=== PATIENT | female | born 1965 | race Caucasian/White ===

== ENCOUNTER 2019-12-24 17:18 | Outpatient (CLI) | payer OTHER, SELFPAY ==
--- NOTE | ~2019-12-24 | MR_ITS ---
EXAMINATION: MR brain IAC wo/w con DATE: 12/24/2019 18:49 INDICATION: Left-sided hearing loss. Diplopia. Posterior headache. Dizziness and giddiness. TECHNIQUE: Magnetic resonance imaging (MRI) of the brain, brainstem, and internal auditory canals was performed without and with 11 mL MultiHance intravenous contrast. Sequences included sagittal and ax ial T1-weighted FSE, axial diffusion-weighted FS EPI, axial T2*-weighted GRE, axial T2-weighted FLAIR Propeller, axial T2-weighted Propeller, small pkngy-lt-uwou coronal FIESTA, small vwvec-ub-czad lukas nal T1-weighted FSE, and small zssbw-ew-yucs axial T1-weighted SPGR. Postcontrast sequences included axial T1-weighted FSE, small tltgh-dq-jaxf coronal T1-weighted FSE, and small bmgnx-ac-uldr axial T1- weighted SPGR. Apparent diffusion coefficient (ADC) maps were created. COMPARISON: Brain MRI 09/01/2007 FINDINGS: There are scattered areas of nonspecific increased T2-weighted signal intensity in the cere bral white matter. There is no intracranial hemorrhage, acute infarction, or abnormal intracranial ma ss lesion. The ventricles are normal in size. The paranasal sinuses are clear. The orbits are normal. The internal auditory canals and inner ears are normal. There is a small right mastoid effusion. IMPRESSION: 1. Worsened mild nonspecific cerebral white matter disease, which likely represents chronic small ves ryland ischemic disease. Reviewed, dictated and finalized at location A. IMPRESSION: 1. Worsened mild nonspecific cerebral white matter disease, which likely repres ents chronic small vessel ischemic disease.
[2019-12-24 17:56] LABS: Estimated Glomerular Filt Rate > 60
== END 2019-12-24 17:19 | disposition home or self-care (01) ==
LOC: ANHIMG 17:22
PROVIDERS: PCP Internal Medicine; Visit Provider Internal Medicine
DX: R42 Dizziness and giddiness (principal); R93.0 Abnormal findings on diagnostic imaging of skull and head, not elsewhere classified
CPT/HCPCS: 36415; 70553; A9577

== ENCOUNTER 2020-08-09 12:52 | Outpatient (CLI) | payer MEDICARE, SELFPAY ==
--- NOTE | ~2020-08-09 | MR_ITS ---
EXAMINATION: MR brain/brain stem wo con DATE: 08/09/2020 15:33 INDICATION: Headache. TECHNIQUE: Magnetic resonance imaging (MRI) of the brain and brainstem was performed without intraven ous contrast. Sequences included sagittal and axial T1-weighted FSE, axial diffusion-weighted FS EPI, axial T2*-weighted GRE, axial T2-weighted FLAIR Propeller, and axial T2-weighted Propeller. Apparent diffusion coefficient (ADC) maps were created. COMPARISON: Brain MRI 12/24/2019 FINDINGS: There are scattered areas of nonspecific increased T2-weighted signal intensity in the cere bral white matter. There is no intracranial hemorrhage, acute infarction, or abnormal intracranial ma ss lesion. The ventricles are normal in size. The paranasal sinuses are clear. The orbits are normal. The mastoid air cells are normal. IMPRESSION: 1. Stable mild nonspecific cerebral white matter disease, which likely represents chronic small vesse l ischemic disease. Reviewed, dictated and finalized at location A. COLOR TESTER IMPRESSION: 1. Stable mild nonspecific cerebral white matter disease, which likely represen ts chronic small vessel ischemic disease.
--- NOTE | 2020-08-10 09:25 | WPDNEUROLOGY ---
Neurology EEG Report General Information Date of Study: 08/09/20 TEST eeg DIAGNOSIS headaches CONDITION OF RECORDING awake drowsy and sleep EEG NUMBER [id number] CLINICAL HISTORY patient reported she had a concussion about 2 years ago. At present she is having problems of visual changes and headaches and also some memory difficulties. EEG DESCRIPTION Basic resting occipital frequency consists of low to medium voltage 8 to 9 hertz per 2nd alpha admixed with small amount of low-voltage 15 to 18 hertz per 2nd beta. During drowsiness low-voltage beta activity seen diffusely admixed with waxing and waning posterior alpha rhythm. Bilateral symmetrical sleep activity is seen during sleep with normal and symmetrical sleep spindles hyperventilation not done. Photic stimulation produced normal drive. Non paroxysmal. Nonfocal. Nonlateralizing. IMPRESSION Normal EEG
== END 2020-08-09 12:53 | disposition home or self-care (01) ==
PROVIDERS: PCP Internal Medicine; Visit Provider Psychiatry & Neurology Neurology
DX: R51.9 Headache, unspecified (principal); R93.0 Abnormal findings on diagnostic imaging of skull and head, not elsewhere classified
CPT/HCPCS: 70551; 95816

== ENCOUNTER 2021-01-05 13:07 | Outpatient (CLI) | payer MEDICARE, SELFPAY ==
--- NOTE | ~2021-01-05 | US_ITS ---
EXAMINATION: US pelvic complete w TV DATE: 01/05/2021 15:01 INDICATION: Pelvic and perineal pain. Comparison:No prior studies for comparison. TECHNIQUE: Multiple transabdominal and endovaginal sonographic images of the pelvis performed. FINDINGS: The uterus measures 5.1 x 3.5 x 2.6 cm. The endometrial complex measures 2.4 mm. The ovaries are not identified, likely atrophic. There is no free fluid in the pelvis. There are no abnormal masses seen on either side. IMPRESSION: 1. Unremarkable pelvic ultrasound. Reviewed, dictated and finalized at location A.
[2021-01-05 14:27] LABS: Basophils Percent Auto 0.6 % (0.2-1.2); Eosinophils Absolute Auto 0.1 K/mm3 (0-0.3); Hematocrit 37.8 % (37.0-47.0); Hemoglobin 12.4 g/dL (12.0-15.0); Immature Granulocyte Absolute 0.01 K/mm3 (0.00-0.031); Immature Granulocyte Percent A 0.2 % (0-0.5); Lymphocytes Absolute Auto 1.79 K/mm3 (0.9-3.2); Lymphocytes Percent Auto 36.7 % (18.3-44.2); Mean Corpuscular HGB Conc 32.8 g/dl (32-36); Mean Corpuscular Hemoglobin 30.4 pg (26-34); Mean Corpuscular Volume 92.6 fl (80-100); Mean Platelet Volume 10.5 fl (7.4-10.4); Monocytes Absolute Auto 0.3 K/mm3 (0.1-0.6); Monocytes Percent Auto 6.8 % (2.6-8.5); Neutrophils Absolute Auto 2.7 K/mm3 (1.3-6.7); Neutrophils Percent Auto 54.7 % (45.5-73.1); Platelet Count Result 233 k/mm3 (150-375); Red Blood Count 4.08 M/mm3 (4.2-5.4); White Blood Count 4.9 K/mm3 (4.5-10.0)
[2021-01-05 14:39] LABS: Alanine Aminotransferase 15 U/L (4-35); Albumin Level 3.8 g/dL (3.5-5.1); Alkaline Phosphatase 136 U/L (38-126); Anion Gap 5 mmol/L (8-16); Aspartate Amino Transferase 26 U/L (14-36); Bilirubin,Total < 0.1 mg/dL (0.2-1.3); Blood Urea Nitrogen 13 mg/dL (7-17); Calcium 8.6 mg/dL (8.4-10.2); Carbon Dioxide 27 mmol/L (22-30); Chloride 110 mmol/L (98-107); Cholesterol 138 mg/dL (0-200); Estimated Glomerular Filt Rate 57; Glucose 100 mg/dL (65-105); HDL Direct 72 mg/dL; Potassium 3.3 mmol/L (3.4-5.0); Sodium 142 mmol/L (137-145); Triglycerides 86 mg/dL (<150)
[2021-01-05 14:50] LABS: LDL Cholesterol Direct 50 mg/dL
[2021-01-05 15:19] LABS: HIV 1/2 Ab P24 Ag Result Negative (Negative)
[2021-01-05 15:45] LABS: Hepatitis B Surface Antigen Negative (Negative)
[2021-01-05 15:50] LABS: HAV RESULT Negative (Negative); Hepatitis B Core IgM Result Negative (Negative)
[2021-01-05 16:02] LABS: Hepatitis C Virus Antibody Negative (Negative)
[2021-01-06 14:14] LABS: Rapid Plasma Reagin Non-Reactive (NonReactive)
== END 2021-01-05 13:08 | disposition home or self-care (01) ==
PROVIDERS: PCP Internal Medicine; Visit Provider Obstetrics & Gynecology
DX: R10.2 Pelvic and perineal pain (principal); Z13.6 Encounter for screening for cardiovascular disorders; Z79.899 Other long term (current) drug therapy; N89.8 Other specified noninflammatory disorders of vagina
CPT/HCPCS: 36415; 76830; 76856; 80053; 80061; 80074; 85025; 86592; 86703; 87086; G0432

== ENCOUNTER 2023-06-26 13:45 | Emergency (ER) | payer MEDICARE, SELFPAY ==
[2023-06-26 14:01] VITALS: BP 171/92; PULSE 88; RESP 16; TEMP 36.4; O2SAT 100
--- NOTE | 2023-06-26 14:52 | ED.DENTAL ---
HPI - Dental/Oral General Chief complaint: Dental/Oral Stated complaint: mouth sores Time Seen by Provider: 06/26/23 14:15 History of Present Illness HPI Narrative: 58-year-old female presents to the emergency room for evaluation of multiple ulcerations in her mouth and along her gumline. Related Data Allergies Allergy/AdvReac Type Severity Reaction Status Date / Time No Known Allergies Allergy Verified 07/12/17 15:13 Review of Systems Review of Systems: CONSTITUTIONAL: Denies fever, chills, or sweats. EYES: Denies visual changes, redness, or discharge. ENT: Denies rhinorrhea, congestion, sore throat, or otalgia. CARDIOVASCULAR: Denies chest pain, palpitations, or edema. RESPIRATORY: Denies cough or dyspnea. GASTROINTESTINAL: Denies abdominal pain, nausea, vomiting, or diarrhea. GENITOURINARY: Denies dysuria or hematuria. SKIN: Denies rash or itching. MUSCULOSKELETAL: Denies back pain, joint pain, or myalgia. NEUROLOGIC: Denies headache, numbness, dizziness, or weakness. PSYCHIATRIC: Denies anxiety or depression. Exam Narrative: GENERAL: Well-appearing, well-nourished, no physical limitations, and in no acute distress. HEAD: Normocephalic, atraumatic. EYES: Conjunctivae normal, PERRLA and EOMI. ENT: Multiple aphthous ulcers noted to the upper gingiva CHEST: Clear to auscultation. No respiratory distress. No wheezes rales or rhonchi. No tenderness. HEART: Regular rate and rhythm. No murmur heard. Normal peripheral pulses. EXTREMITIES: Normal range of motion. No edema. No clubbing or cyanosis SKIN: Warm, dry, no rash. No noted wounds NEURO: No focal deficits. Alert and oriented x3. MAEW. CN's II-XI intact bilaterally, normal gait PSYCH: Cooperative. Normal mood and affect. Course Vital Signs Vital signs: Vital Signs Temperature 36.4 C 06/26/23 14:01 Pulse Rate 88 06/26/23 14:01 Respiratory Rate 16 06/26/23 14:01 Blood Pressure 171/92 H 06/26/23 14:01 Pulse Oximetry 100 06/26/23 14:01 Oxygen Delivery Room Air 06/26/23 14:01 Temperature 36.4 C 06/26/23 14:01 Pulse Rate 88 06/26/23 14:01 Respiratory Rate 16 06/26/23 14:01 Blood Pressure 171/92 H 06/26/23 14:01 Pulse Oximetry 100 06/26/23 14:01 Oxygen Delivery Room Air 06/26/23 14:01 Discharge Plan Discharge Clinical Impression: Aphthous ulcer Patient Disposition: Home, Self-Care Condition: Stable Instructions: Antibiotic Form, Gingivostomatitis (ED) Prescriptions: New dexamethasone 0.5 mg/5 mL solution 0.5 mg PO TID Qty: 240 0RF lidocaine HCl [Lidocaine Viscous] 2 % solution 1 applic mucous membrane TID Qty: 100 0RF Follow-up/Referrals: PHYSICIAN NOT ON STAFF,NONSTAFF [Primary Care Provider] - Time of Disposition: 14:50
== END 2023-06-26 15:13 | disposition home or self-care (01) ==
PROVIDERS: Emergency Provider Nurse Practitioner Family
DX: K12.0 Recurrent oral aphthae (principal)
CPT/HCPCS: 99283

== ENCOUNTER 2024-06-28 17:17 | Emergency (ER) | payer MEDICARE, SELFPAY ==
[2024-06-28] VITALS (21 sets, daily range): BP systolic 163–194; BP diastolic 94–109; PULSE 68–93; RESP 15–25; TEMP 36.4–36.9; O2SAT 96–100
--- NOTE | ~2024-06-28 | CT_ITS ---
Clinical Indication: Shortness of breath, abdominal pain CT Scan of the Chest, Abdomen, and Pelvis with Contrast: Technique: Contiguous sections were acquired throughout the chest, abdomen, and pelvis after intraven ous administration of 100 cc of Omnipaque 350. Dose reduction technique was used on this scan by igor chris automated exposure control and iterative reconstruction technique. The dose-length product (DL P) was 517.13 mGy-cm. Findings: There is no evidence of any significant mediastinal, hilar or axillary lymphadenopathy. The mediastin al soft tissues appear normal. There is no evidence of pleural or pericardial effusion. The lungs are clear. No pulmonary nodules or infiltrates are noted. There is diffuse hepatic steatosis. The spleen, pancreas, gallbladder, adrenals and kidneys are withi n normal limits. No evidence of aortic aneurysm. No lymphadenopathy. Small hiatal hernia noted. No bowel obstruction or bowel wall thickening. There is no evidence to sug gest acute appendicitis. Urinary bladder is unremarkable. No pelvic mass seen. No ascites. Impression: No acute abnormalities seen. Diffuse hepatic steatosis. Reviewed, dictated and finalized at location . Impression: No acute abnormalities seen. Diffuse hepatic steatosis.
--- NOTE | ~2024-06-28 | XR_ITS ---
EXAMINATION: XR chest 2V Exam Date/Time: 06/28/2024 20:33 CDT HISTORY: cough, shortness of breath Comparison: 04/26/2016. RESULT: Lines, tubes, and devices: None. Lungs and pleura: Emphysematous/senescent change. Chronic posterior costophrenic angle blunting. Cardiomediastinal silhouette: Stable. Other: No acute osseous or upper abdominal finding. IMPRESSION: No acute cardiopulmonary process. Reviewed, dictated and finalized at location K.
--- NOTE | ~2024-06-28 | CT_ITS ---
EXAMINATION: CT brain wo con DATE: 06/28/2024 20:41 INDICATION: severe headache . TECHNIQUE: Computed tomography (CT) of the head was performed without intravenous contrast. The mA wa s adjusted according to patient size. Iterative reconstruction technique was employed. The dose-lengt h product was 605.33 mGy-cm. COMPARISON: 12/15/2007; MRI brain 08/09/2020. FINDINGS: No acute intracranial hemorrhage or extra-axial fluid collection. No hydrocephalus, mass, or herniation. No acute ischemic infarct. Unremarkable dural venous sinus attenuation. No acute osseous abnormality. Mucosal thickening and aerated secretions in the ethmoid sinuses, air-fluid levels in the bilateral m axillary sinuses, the remaining aerated spaces are clear. Mild chronic white matter change. Atherosclerotic intracranial calcification. IMPRESSION: No acute intracranial process. Bilateral ethmoid and maxillary sinus findings may represent acute sinusitis in the appropriate clini moncho context. Reviewed, dictated and finalized at location K. IMPRESSION: No acute intracranial process. Bilateral ethmoid and maxillary sinus findings may represent acute sinusitis in the appropriate clinical context.
--- NOTE | 2024-06-28 20:07 | ECG_ITS ---
Test Date: 2024-06-28 22:02:17 Measurements Intervals [place] Rate: 67 P: 55 AL: 143 QRS: 7 QRSD: 69 T: 43 QT: 413 QTc: 437 Interpretive Statements SINUS RHYTHM POSSIBLE LEFT ATRIAL ENLARGEMENT [-0.1mV P WAVE IN V1/V2] SEPTAL MYOCARDIAL INFARCTION , OF INDETERMINATE AGE [40+ ms Q WAVE IN V1/V2] No previous ECG available for comparison Electronically Signed On 06-29-2024 14:29:16 CDT by Micha Huerta M.D.
[2024-06-28] MEDS: SODIUM CHLORIDE 0.9% IV 1,000 ML 999 ML IV CONT (21:10)
[2024-06-28] MEDS: KETOROLAC 15 MG/ML VIAL (*BKC) IV PUSH (21:16)
[2024-06-28] MEDS: METOCLOPRAMIDE HCL INJ 10 MG/2 ML VIAL IV PUSH (21:17)
[2024-06-28 21:20] LABS: Basophils Absolute Auto 0.1 K/mm3 (0.0-0.1); Basophils Percent Auto 0.7 % (0.2-1.2); Eosinophils Absolute Auto 0.1 K/mm3 (0-0.3); Hemoglobin 15.8 g/dL (12.0-15.0); Immature Granulocyte Absolute 0.01 K/mm3 (0.00-0.031); Immature Granulocyte Percent A 0.1 % (0-0.5); Lymphocytes Absolute Auto 2.72 K/mm3 (0.9-3.2); Lymphocytes Percent Auto 38.1 % (18.3-44.2); Mean Corpuscular HGB Conc 34.3 g/dl (32-36); Mean Corpuscular Hemoglobin 30.6 pg (26-34); Mean Corpuscular Volume 89.1 fl (80-100); Mean Platelet Volume 10.4 fl (7.4-10.4); Monocytes Absolute Auto 0.5 K/mm3 (0.1-0.6); Monocytes Percent Auto 6.6 % (2.6-8.5); Neutrophils Absolute Auto 3.7 K/mm3 (1.3-6.7); Neutrophils Percent Auto 52.5 % (45.5-73.1); Platelet Count Result 247 k/mm3 (150-375); Red Blood Count 5.16 M/mm3 (4.2-5.4); Red Cell Distribution Width 12.6 % (11.5-14.5); White Blood Count 7.1 K/mm3 (4.5-10.0)
[2024-06-28 21:31] LABS: INR 0.9
[2024-06-28 21:32] LABS: Partial Thromboplastin Time 24.4 Seconds (22.3-36.8)
[2024-06-28 21:35] LABS: D Dimer 0.37 ug/mL (<0.48)
[2024-06-28 21:36] LABS: Magnesium 2.1 mg/dL (1.6-2.3)
[2024-06-28 21:36] LABS: Alanine Aminotransferase 75 U/L (6-35); Albumin Level 4.7 g/dL (3.5-5.1); Alkaline Phosphatase 124 U/L (38-126); Anion Gap 7 mmol/L (4-12); Aspartate Amino Transferase 41 U/L (14-36); Bilirubin,Total 0.4 mg/dL (0.2-1.3); Blood Urea Nitrogen 9 mg/dL (7-17); Calcium 9.3 mg/dL (8.4-10.2); Carbon Dioxide 32 mmol/L (22-30); Chloride 101 mmol/L (98-107); Estimated CRCL calculation 52 ml/min; Estimated Glomerular Filt Rate > 60; Glucose 101 mg/dL (65-110); Potassium 3.6 mmol/L (3.4-5.0); Sodium 140 mmol/L (137-145)
[2024-06-28 21:38] LABS: Hemoglobin A1C 5.4 % (<5.7)
[2024-06-28 21:45] LABS: NT Pro B Type Natriuretic Pept 817 pg/mL (19.9-100)
[2024-06-28 21:48] LABS: Troponin I < 0.012 ng/mL (0.000-0.034)
--- NOTE | 2024-06-28 22:04 | ED.WEAKNESS ---
HPI - Weakness General Chief complaint: Weakness Stated complaint: weakness Time Seen by Provider: 06/28/24 18:58 Source: patient Mode of arrival: ambulatory Limitations: no limitations History of Present Illness HPI Narrative: Patient is a 59-year-old female presents to the ER with complaints a 3 week long headache, weakness, congestion, tingling and numbness in extremities, increased urination, productive cough, pressure in her shoulders and upper back, and concern for diabetes. She reports she said for 2 weeks and thought she was getting better, then this morning her symptoms were significantly worse. Patient has an appointment with her primary care doctor on Saturday, in 2 days, but she said she was so uncomfortable she could not wait that long. She reports she has a history of high blood pressure, congestive heart failure, and is an every day smoker. Patient denies chest pain, but endorses intermittent wheezing throughout her sickness over the past 3 weeks. She also denies fever and one-sided weakness, but endorses intermittent tingling and numbness in her extremities. Related Data Allergies Allergy/AdvReac Type Severity Reaction Status Date / Time No Known Allergies Allergy Verified 06/28/24 17:20 Review of Systems Review of Systems: All systems reviewed & are unremarkable except as noted in HPI and below Exam Narrative: GENERAL: Well appearing, well-nourished, non-toxic, in no acute distress. HEAD: Normocephalic, atraumatic. Nasal turbinates reddened and swollen. NECK: Supple. No adenopathy, no masses. No palpable thyroid gland. RESPIRATORY: Airway patent, respirations nonlabored. Clear to auscultation bilaterally, no rales, rhonchi, wheezing. Productive cough noted. CARDIOVASCULAR: Regular rate and rhythm without murmurs, rubs, or gallops. Peripheral pulses 2+ and equal bilaterally. ABDOMINAL: Soft, nontender, nondistended, no hepatosplenomegaly. Normoactive BS. MUSCULOSKELETAL: Moves all extremities. Strength/ROM intact without gross deformities. SKIN: Warm, dry, normal color. No rashes. NEURO: A&O X3. Speech clear. Cranial nerves II-XII grossly intact. No ataxic movements. PSYCHIATRIC: Appropriate mood and affect. Normal interaction. Course Vital Signs Vital signs: Vital Signs Temperature 36.4 C L 06/28/24 17:21 Pulse Rate 93 06/28/24 17:21 Respiratory Rate 16 06/28/24 17:21 Blood Pressure 194/99 H 06/28/24 17:21 Pulse Oximetry 100 06/28/24 17:21 Temperature 36.9 C 06/28/24 18:53 Pulse Rate 74 06/28/24 23:02 Respiratory Rate 22 H 06/28/24 23:02 Blood Pressure 163/109 H 06/28/24 23:02 Pulse Oximetry 97 06/28/24 23:02 MDM - Weakness MDM Narrative Medical decision making narrative: Patient is a 59-year-old female presents to the ER with complaints a 3 week long headache, weakness, congestion, tingling and numbness in extremities, increased urination, productive cough, pressure in her shoulders and upper back, and concern for diabetes. She reports she said for 2 weeks and thought she was getting better, then this morning her symptoms were significantly worse. Patient has an appointment with her primary care doctor on Saturday, in 2 days, but she said she was so uncomfortable she could not wait that long. She reports she has a history of high blood pressure, congestive heart failure, and is an every day smoker. Patient denies chest pain, but endorses intermittent wheezing throughout her sickness over the past 3 weeks. She also denies fever and one-sided weakness, but endorses intermittent tingling and numbness in her extremities. Upon physical examination patient has a productive cough. Her lung sounds are clear. Patient has nasal turbinates that are red and swollen. No postnasal drip noted. No palpable lymph nodes. Patient's CBC showed a hemoglobin of 15.8. Her chemistry showed a carbon dioxide level of 32, AST of 41, ALT of 75. Her pro BNP was 817, which was decreased from last time patient had her pro BMP drawn. She was given 40 mg Lasix IV. Patient's chest x-ray and chest/ abdomen / pelvis CT scan were all unremarkable with no acute findings. Her head CT showed acute sinusitis. She reports her symptoms have improved. Patient will be given Solu-Medrol IV to help decrease swelling in her sinuses. She will also be given a dose of doxycycline here in the ER and then discharged with a prescription also. Patient verbalized understanding of plan. Differential Diagnosis Differential diagnosis: Likely dehydration Lab Data Attestation: I reviewed the patient's lab results. 06/28/24 21:12 06/28/24 21:13 Labs: Lab Results 06/28/24 06/28/24 06/28/24 Range/Units 21:12 21:13 21:22 WBC 7.1 (4.5-10.0) K/mm3 RBC 5.16 (4.2-5.4) M/mm3 Hgb 15.8 H D (12.0-15.0) g/dL Hct 46.0 (37.0-47.0) % MCV 89.1 (80-100) fl MCH 30.6 (26-34) pg MCHC 34.3 (32-36) g/dl RDW 12.6 (11.5-14.5) % Plt Count 247 (150-375) k/mm3 MPV 10.4 (7.4-10.4) fl Immature Gran % (Auto) 0.1 (0-0.5) % Neut % (Auto) 52.5 (45.5-73.1) % Lymph % (Auto) 38.1 (18.3-44.2) % Traverse % (Auto) 6.6 (2.6-8.5) % Eos % (Auto) 2.0 (0-4.4) % Baso % (Auto) 0.7 (0.2-1.2) % Lymph # (Auto) 2.72 (0.9-3.2) K/mm3 Traverse # (Auto) 0.5 (0.1-0.6) K/mm3 Eos # (Auto) 0.1 (0-0.3) K/mm3 Baso # (Auto) 0.1 (0.0-0.1) K/mm3 Abs Immat Gran (auto) 0.01 (0.00-0.031) K/mm3 Absolute Neuts (auto) 3.7 (1.3-6.7) K/mm3 Absolute Nucleated RBC 0.000 (0.0-0.012) K/mm3 Nucleated RBC % 0.0 (0.0-0.2) % PT 13.0 (11.1-14.7) Seconds INR 0.9 APTT 24.4 (22.3-36.8) Seconds D-Dimer 0.37 (<0.48) ug/mL Sodium 140 (137-145) mmol/L Potassium 3.6 (3.4-5.0) mmol/L Chloride 101 (98-107) mmol/L Carbon Dioxide 32 H (22-30) mmol/L Anion Gap 7 (4-12) mmol/L BUN 9 (7-17) mg/dL Creatinine 0.90 (0.7-1.0) mg/dL Estim Creat Clear Calc 52 ml/min Estimated GFR > 60 (59 - ) Glucose 101 (65-110) mg/dL Hemoglobin A1c 5.4 (<5.7) % Calcium 9.3 (8.4-10.2) mg/dL Magnesium 2.1 (1.6-2.3) mg/dL Total Bilirubin 0.4 (0.2-1.3) mg/dL AST 41 H (14-36) U/L ALT 75 H (6-35) U/L Alkaline Phosphatase 124 (38-126) U/L Troponin I < 0.012 (0.000-0.034) ng/mL NT-Pro-B Natriuret Pep 817 H (19.9-100) pg/mL Total Protein 8.0 (6.3-8.2) g/dL Albumin 4.7 (3.5-5.1) g/dL TSH (Reflex) 3.630 (0.465-4.68) uIU/mL Urine Color (Yellow) Urine Appearance (Clear) Urine pH (5.0-9.0) Ur Specific [place] (1.001-1.035) Urine Protein (Negative) mg/dL Urine Glucose (UA) (Negative) mg/dL Urine Ketones (Negative) mg/dL Ur Blood (Man) (Negative) Urine Nitrate (Negative) Urine Bilirubin (Negative) Urine Urobilinogen (<2.0) mg/dL Leukocyte Esterase Rfl (Negative) WILLIAN/UL Influenza A (RT-PCR) Negative (Negative) Influenza B (RT-PCR) Negative (Negative) RSV (RT-PCR) Negative (Negative) SARS-CoV-2 RNA (RT-PCR) Negative (Negative) 06/28/24 Range/Units 22:19 WBC (4.5-10.0) K/mm3 RBC (4.2-5.4) M/mm3 Hgb (12.0-15.0) g/dL Hct (37.0-47.0) % MCV (80-100) fl MCH (26-34) pg MCHC (32-36) g/dl RDW (11.5-14.5) % Plt Count (150-375) k/mm3 MPV (7.4-10.4) fl Immature Gran % (Auto) (0-0.5) % Neut % (Auto) (45.5-73.1) % Lymph % (Auto) (18.3-44.2) % Traverse % (Auto) (2.6-8.5) % Eos % (Auto) (0-4.4) % Baso % (Auto) (0.2-1.2) % Lymph # (Auto) (0.9-3.2) K/mm3 Traverse # (Auto) (0.1-0.6) K/mm3 Eos # (Auto) (0-0.3) K/mm3 Baso # (Auto) (0.0-0.1) K/mm3 Abs Immat Gran (auto) (0.00-0.031) K/mm3 Absolute Neuts (auto) (1.3-6.7) K/mm3 Absolute Nucleated RBC (0.0-0.012) K/mm3 Nucleated RBC % (0.0-0.2) % PT (11.1-14.7) Seconds INR APTT (22.3-36.8) Seconds D-Dimer (<0.48) ug/mL Sodium (137-145) mmol/L Potassium (3.4-5.0) mmol/L Chloride (98-107) mmol/L Carbon Dioxide (22-30) mmol/L Anion Gap (4-12) mmol/L BUN (7-17) mg/dL Creatinine (0.7-1.0) mg/dL Estim Creat Clear Calc ml/min Estimated GFR (59 - ) Glucose (65-110) mg/dL Hemoglobin A1c (<5.7) % Calcium (8.4-10.2) mg/dL Magnesium (1.6-2.3) mg/dL Total Bilirubin (0.2-1.3) mg/dL AST (14-36) U/L ALT (6-35) U/L Alkaline Phosphatase (38-126) U/L Troponin I (0.000-0.034) ng/mL NT-Pro-B Natriuret Pep (19.9-100) pg/mL Total Protein (6.3-8.2) g/dL Albumin (3.5-5.1) g/dL TSH (Reflex) (0.465-4.68) uIU/mL Urine Color Yellow (Yellow) Urine Appearance Clear (Clear) Urine pH 6.5 (5.0-9.0) Ur Specific [place] 1.014 (1.001-1.035) Urine Protein Negative (Negative) mg/dL Urine Glucose (UA) Negative (Negative) mg/dL Urine Ketones Negative (Negative) mg/dL Ur Blood (Man) Negative (Negative) Urine Nitrate Negative (Negative) Urine Bilirubin Negative (Negative) Urine Urobilinogen 0.2 (<2.0) mg/dL Leukocyte Esterase Rfl Negative (Negative) WILLIAN/UL Influenza A (RT-PCR) (Negative) Influenza B (RT-PCR) (Negative) RSV (RT-PCR) (Negative) SARS-CoV-2 RNA (RT-PCR) (Negative) Imaging Data Attestation: I personally reviewed and interpreted this imaging study as follows: My impression: Patient's CT chest scan showed no acute findings. Patient's CT and pelvis scans showed no acute findings. Impressions Head CT 06/28/24 20:42 IMPRESSION: No acute intracranial process. Bilateral ethmoid and maxillary sinus findings may represent acute sinusitis in the appropriate clinical context. Chest X-Ray 06/28/24 21:04 IMPRESSION: No acute cardiopulmonary process. Radiologist's impression: Impressions Head CT 06/28/24 20:42 IMPRESSION: No acute intracranial process. Bilateral ethmoid and maxillary sinus findings may represent acute sinusitis in the appropriate clinical context. Chest X-Ray 06/28/24 21:04 IMPRESSION: No acute cardiopulmonary process. Discharge Plan Discharge Clinical Impression: Acute sinus infection Patient Disposition: Home, Self-Care Condition: Stable Instructions: Antibiotic Form, Sinusitis (ED) Additional Instructions: Please return to the ER with worsening symptoms. Take all medications as prescribed. Follow-up with your primary care provider if symptoms do not resolve. You may use saline sinus flushes and Flonase nasal spray to help open up your sinuses. Prescriptions: New doxycycline monohydrate 100 mg tablet 100 mg PO BID Qty: 14 0RF fluticasone propionate [24 Hour Allergy Relief] 50 mcg/actuation spray,suspension 1 spray intranasal BID Qty: 16 0RF Rx Instructions: administer into each nostril No Action dexamethasone 0.5 mg/5 mL solution 0.5 mg PO TID Qty: 240 0RF lidocaine HCl [Lidocaine Viscous] 2 % solution 1 applic mucous membrane TID Qty: 100 0RF dexamethasone 0.5 mg/5 mL elixir 0.5 mg PO TID Qty: 237 0RF lidocaine HCl [Lidocaine Viscous] 2 % solution 1 applic mucous membrane TID Qty: 100 0RF Follow-up/Referrals: PHYSICIAN NOT ON STAFF,NONSTAFF [Primary Care Provider] - Time of Disposition: 01:15
[2024-06-28 22:05] LABS: Influenza A QL RT-PCR Negative (Negative); Influenza B QL RT-PCR Negative (Negative); RSV RNA, RT-PCR Negative (Negative); SARS-CoV-2 RNA PCR Negative (Negative)
[2024-06-28] MEDS: FUROSEMIDE INJ 40 MG/4 ML VIAL IV PUSH (22:17)
[2024-06-28 22:33] LABS: Add Urine Microscopic? NO; Appearance Urine Clear (Clear); Bilirubin Urine Negative (Negative); Blood Urine Negative (Negative); Color Urine Yellow (Yellow); Glucose Urine UA Negative (Negative); Ketones Urine Negative (Negative); Leukocyte Esterase Ur Negative LEU/UL (Negative); Nitrate Urine Negative (Negative); Protein Urine Negative (Negative); Specific Grav Ur 1.014 (1.001-1.035); Urobilinogen Urine 0.2 mg/dL (<2.0); pH Urine 6.5 (5.0-9.0)
--- NOTE | 2024-06-28 23:30 | PC.NURSE ---
Report received from KELLEN Rodriguez. Assumed care of patient at this time.
[2024-06-29] MEDS: DOXYCYCLINE HYCLATE 100 MG TABLET PO (01:14)
[2024-06-29] MEDS: methylPREDNISolone SOD SUCC 125 MG VIAL IV PUSH (01:15)
[2024-06-29 01:19] VITALS: BP 170/106; PULSE 100; RESP 20; O2SAT 97
== END 2024-06-29 01:31 | disposition home or self-care (01) ==
PROVIDERS: Emergency Provider Registered Nurse
DX: J01.20 Acute ethmoidal sinusitis, unspecified (principal); J01.00 Acute maxillary sinusitis, unspecified; Z20.822 Contact with and (suspected) exposure to COVID-19; I11.0 Hypertensive heart disease with heart failure; I50.9 Heart failure, unspecified; F17.200 Nicotine dependence, unspecified, uncomplicated; K76.0 Fatty (change of) liver, not elsewhere classified; R94.31 Abnormal electrocardiogram [ECG] [EKG]; R35.0 Frequency of micturition
CPT/HCPCS: 36415; 70450; 71046; 71260; 74177; 80053; 81003; 83036; 83735; 83880; 84443; 84484; 85025; 85380; 85610; 85730; 87637; 93005; 96361; 96374; 96375; 99284; A9270; J1885; J1940; J2765; J2919; J7030; Q9967

== ENCOUNTER 2024-10-08 15:23 | Outpatient (CLI) | payer MEDICARE, SELFPAY ==
--- NOTE | ~2024-10-08 | XR_ITS ---
Exam: Abdomen 1V HISTORY: R74.8 - Abnormal levels of other serum enzymes COMPARISON: Reference is made to a CT examination of the chest abdomen and pelvis dated 06/28/2024 TECHNIQUE: Supine images of the abdomen FINDINGS: Moderate fecal stasis within the colon. Teardrop shaped focus of air opacified bowel within the left hemipelvis, similar in appearance to CT examination performed 06/28/2024 for which direct visualization of the rectum and distal sigmoid colo n is recommended (via colonoscopy). This may simply be due to diverticulitis in that area although ec centric mural thickening is also noted on CT examination, for which direct visualization is recommend ed. IMPRESSION: Moderate fecal stasis. Abnormal bowel gas pattern within the left hemipelvis for which direct visualization is recommended. Reviewed, dictated and finalized at location A. ZER IMPRESSION: Moderate fecal stasis. Abnormal bowel gas pattern within the left hemipelvis for which direct visualiz ation is recommended.
[2024-10-08 16:15] LABS: Hematocrit 45.5 % (37.0-47.0); Hemoglobin 15.2 g/dL (12.0-15.0); Mean Corpuscular HGB Conc 33.4 g/dl (32-36); Mean Corpuscular Hemoglobin 30.6 pg (26-34); Mean Corpuscular Volume 91.5 fl (80-100); Mean Platelet Volume 10.8 fl (7.4-10.4); Platelet Count Result 237 k/mm3 (150-375); Red Blood Count 4.97 M/mm3 (4.2-5.4); Red Cell Distribution Width 12.6 % (11.5-14.5); White Blood Count 6.2 K/mm3 (4.5-10.0)
[2024-10-08 16:20] LABS: Prothrombin Time 13.5 Seconds (11.1-14.7)
[2024-10-08 17:01] LABS: Alanine Aminotransferase 50 U/L (6-35); Albumin Level 4.7 g/dL (3.5-5.1); Alkaline Phosphatase 156 U/L (38-126); Anion Gap 10 mmol/L (4-12); Aspartate Amino Transferase 40 U/L (14-36); Bilirubin,Total 0.5 mg/dL (0.2-1.3); Blood Urea Nitrogen 12 mg/dL (7-17); Calcium 9.3 mg/dL (8.4-10.2); Carbon Dioxide 33 mmol/L (22-30); Chloride 97 mmol/L (98-107); Cholesterol 200 mg/dL (0-200); Estimated Glomerular Filt Rate 47; Glucose 97 mg/dL (65-110); HDL Direct 72 mg/dL; Potassium 3.2 mmol/L (3.4-5.0); Sodium 140 mmol/L (137-145); Triglycerides 135 mg/dL (<150)
[2024-10-08 17:12] LABS: LDL Cholesterol Direct 95 mg/dL
[2024-10-08 18:25] LABS: Iron 73 ug/dL (37-170)
[2024-10-08 18:35] LABS: Percent Iron Saturation 19 % (20-50)
[2024-10-08 18:52] LABS: Immunoglobulin G 826 mg/dL (700-1600); Immunoglobulin M 124 mg/dL (40-230)
[2024-10-09 06:59] LABS: Ceruloplasmin 29 mg/dL (14-48)
[2024-10-09 07:58] LABS: Hepatitis A Antibody Total REACTIVE (NON-REACTIVE)
[2024-10-13 05:14] LABS: LKM 1 Antibody <=20.0 U (<=20.0)
== END 2024-10-08 15:24 | disposition home or self-care (01) ==
PROVIDERS: PCP Internal Medicine; Visit Provider Nurse Practitioner
DX: R74.8 Abnormal levels of other serum enzymes (principal); K76.0 Fatty (change of) liver, not elsewhere classified
CPT/HCPCS: 36415; 74018; 80053; 80061; 81596; 82390; 82728; 82784; 83520; 83540; 83550; 85027; 85610; 86038; 86039; 86364; 86376; 86708

== ENCOUNTER 2024-10-26 14:02 | Outpatient (CLI) | payer MEDICARE, SELFPAY ==
--- NOTE | ~2024-10-26 | CT_ITS ---
EXAMINATION: CT abdomen pelvis w con DATE: 10/26/2024 14:32 INDICATION: Upper abdominal pain, unspecified. TECHNIQUE: Computed tomography (CT) of the abdomen and pelvis was performed with 100 mL Omnipaque 350 intravenous contrast. Automated exposure control and iterative reconstruction technique were employe d. The dose-length product was 450.54 mGy-cm. COMPARISON: CT abdomen and pelvis 06/28/2024 FINDINGS: The visualized portions of lung bases demonstrate mild atelectasis on the right. No pleural effusion. There are small bilateral posterior diaphragmatic hernias containing fat. The heart size i s normal. No pericardial effusion. There is a small sliding hiatal hernia. There is diffuse hepatic s teatosis. The gallbladder, spleen, pancreas, adrenal glands are normal. There is cortical thinning of the kidneys. There is diverticulosis of the colon without evidence of diverticulitis. There are no d ilated loops of bowel. The appendix is normal. There are no pathologically enlarged lymph nodes. Ther e is no free intraperitoneal fluid. There is severe lumbar spondylosis. Lumbar dextroscoliosis is not ed. IMPRESSION: 1. Small sliding hiatal hernia. 2. Diffuse hepatic steatosis. Reviewed, dictated and finalized at location [facility]. [facility]
--- OUTSIDE RECORDS SUMMARY | 2024-10-26 14:17 | XMS_ITS | CONTINUITY OF CARE DOCUMENT ---
Author Name marie levipriscila Address Unknown Organization [facility] Address [address] [address] [place] [address] Phone [phone] Care Team Providers Care Senior Ui Ux Designer Name Role Phone Omero FRASER, Demond Unavailable JAYA ASHTON MD Unavailable [phone] JAYA ASHTON MD Unavailable PROBLEMS Condition Status Date Provider Notes Hypertension active Stas Wynne Chest pain active Aidan Ahmedzai Sleep disorder active Aidan Ahmedzai Depression active Aidan Ahmedzai Migraines active Aidna Ahmedzai Edema active Aidan Ahmedzai ENCOUNTERS Date Type Provider Location Encounter Diag nosis - In-person encounter Office Visit Demond Jamil MD [facility] Chest painEdemaMigrainesSleep disorderDepression VITAL SIGNS Date Observation Value Provider Body Mass Index (Ratio) 25.72 kg/m2 Corey Jamil MD blood pressure, diastolic 92 mm[Hg] Terry jernigan Madrigal blood pressure, systolic 136 mm[Hg] Katy marcelo Madrigal blood pressure, cuff size regular Terry jernigan Madrigal oxygen saturation, oximetry 94 % Va Madrigal pulse rate 87 /min Va Madrigal height E&M 65 [in_i] Va Kaitlin weight E&M 154.6 [lb_av] Va Madrigal ALLERGIES Allergy Name Onset Date Reaction Criticality Status LATEX High Criticality active HISTORY OF MEDICATION USE Medication Status Instructions Dates Provider Indications Com ments amlodipine 10 mg tablet active Take 1 tablet by mouth once a day 3 Conchis Buckley RN Entresto 49-51 mg tablet active Take 1 tablet by mouth twice a day 5 Aidan Ahmedzai lurasidone 40 mg tablet active Aidan Ahmedzai escitalopram oxalate 10 mg tablet active Aidan Ahmedzai dextroamphetamine -amphetamine 30 mg tablet active Aidan Ahmedzai furosemide 40 mg tablet active Aidan Ahmedzai sumatriptan succinate 100 mg tablet active Aidan Ahmedzai losartan 50 mg tablet completed - 5 Aidan Ahmedzai topiramate 100 mg tablet active Aidan Ahmedzai INSURANCE PROVIDERS Payer name Policy type / Coverage type [place] red green party ID [employer] 2 (HMO-POS) Medicare [id number] ADVANCE DIRECTIVES Name Date DISCUSSED - NO DECISION MADE TREATMENT PLAN Date Name Performer Cardiology Aidan Melendezmedzai Cardiology: O rders: S leep Study Home ([id number]) Aidan Almedzai Cardiology Aidan Almedzai Cardiology: O rders: S tress Regadenoson ([id number]) Aidan Almedzai Cardiology: T he following medications were removed from the medication list: Losartan 50 Mg Tablet (Losartan) Her updated medication list for this problem includes: Furosemide 40 Mg Tablet (Furosemide) Orders: S tress Regadenoson ([id number]) R PM (remote patient monitoring) ([id number]) Aidan Doshizai Date Name RPM (remote patient monitoring) Sleep Study Home Stress Regadenoson Complete Echo
--- OUTSIDE RECORDS SUMMARY | 2024-10-26 14:18 | XMS_ITS ---
Author Organization [facility] [employer] [facility] Address [facility] [address] [address] Care Team Providers Care Wire Bound Box Machine Helper Name Role Phone Zhen Rome MD Primary Care Provider UnavailCee Wallace Unavailable [phone] REASON FOR VISIT Refill Medications Medication SIG (Take, Route, Frequency, Duration) Notes Start Date End Date Status Amphetamine-Dextroamphetam ine 30 MG 1 tablet Oral Twice a day for 30 days 09/22/2024 Active Social History Sex Assigned At : Social History Observation Description Sex Assigned At Female Encounters Encounter [facility] [place] [id number] [address] [address] 09/22/2024 Cee Asif Attention-deficit hyperactivity disorder, combined type F90.2 Assessments Encounter Date Diagnosis (ICD Code) Assessment Notes Treatment Notes Treatment Clinical Notes Section Notes 09/22/2024 Attention-deficit hyperactivity disorder, combined type (ICD-10 - F90.2) Plan Of Treatment Medication Medication Name Sig Start Date Stop Date Notes Amphetamine-Dextroamphetamin e 30 MG 1 tablet Oral Twice a day for 30 days 09/22/2024 Next Appt Details Provider Name:Cee Asif , 11/19/2024 03:45:00 PM, [address] [facility] [address], [facility] [address], [address], Progress Notes * CRISTINA MELCHORDOB:1965 (59 yo F)Acc No.[id number]:09/22/2024 Patient: Cristina CRISTINA CLEMENTE :1965 A ge:59 Y S ex:Female Address:[address] [place] [address], [place], [address] * Refills Start Amphetamine-Dextroamphetamine Tablet, 30 MG, Oral, 60 Tablet, 1 tablet, Twice a day, 30 days, Refills=0 Subjective: * Chief Complaints: * R efill * Medical History: * Surgical History: * Hospitalization/Major Diagno stic Procedure: * Medications: Objective: * Vitals: * Physical Examination: Assessment: * Assessment: 1. A ttention-deficit hyperactivity disorder, combined type - F90.2 (Primary) Plan: * Treatment: * Procedure Codes: E RX CONTROLLED SUBSTANCE ERX * * Date:
--- OUTSIDE RECORDS SUMMARY | 2024-10-26 14:18 | XMS_ITS | Clinical Summary ---
Author Organization [facility] Address [address] [place] [address] Care Team Providers Care Business Operations Specialist Name Role Phone Zhen Rome MD Primary Care Provider [phone] Allergies Active Allergy Reactions Criticality Noted Date Comments Diphenhydramine-Apap (Sleep) Unknown 012 Medications amphetamine-dex troamphetamine (ADDERALL) 15 MG tablet dextroamphetam ine-amphetamin e 15 mg tablet 2 Active topiramate (TOPAMAX) 100 MG tablet 2 Active potassium chloride CR (KLOR-CON M) 20 MEQ tablet potassium chloride ER 20 mEq tablet,extende d release Active LATUDA 40 MG Tab tablet TAKE 1 TABLET BY MOUTH EVERY DAY AT DINNER 2 Active furosemide (LASIX) 20 MG tablet Take 1 tablet (20 mg total) by mouth daily. 3 Active clonazePAM (KLONOPIN) 0.5 MG tablet Take 1 tablet (0.5 mg total) by mouth 3 (three) times daily as needed. Active Social History Tobacco Use Types Packs/Day Years Used Date Smoking Tobacco: Every Day Cigarettes Passive Smoke Exposure: Current Smokeless Tobacco: Never Tobacco Cessation:Ready to Q uit: Yes; Counseling Given: Yes Alcohol Use Standard Drinks/Week Comments Yes 0 (1 standard drink = 0.6 oz pur e alcohol) socially Comments Unknown Sex and Gender Information Value Date Recorded Sex Assigned at Not on file Legal Sex Female 9:40 PM CDT Gender Identity Not on file Sexual Orientation Not on file Last Filed Vital Signs Vital Sign Reading Time Taken Comments Blood Pressure 139/94 01/01/2023 8:47 AM CDT Pulse 109 01/01/2023 8:47 AM CDT Temperature 36.7 C (98 F) 01/01/2023 8:47 AM CDT Respiratory Rate - - Oxygen Saturation 98% 01/01/2023 8:47 AM CDT Inhaled Oxygen Concentration - - Weight 57.9 kg (127 lb 11.2 oz) 01/01/2023 8:47 AM CDT Height 166.4 cm (5' 5.5 ) 01/01/2023 8:47 AM CDT Body Mass Index 20.93 01/01/2023 8:47 AM CDT Plan of Treatment Health Maintenance Due Date Last Done Comments Cervical Cancer Screening Pa p Smear (Age 30 to 64) Every 3 Years 1963 Colorectal Cancer Screening Colonoscopy (10 Years) 1963 Annual Physical 1966 Pneumococcal Vaccine: Pediatrics (0 to 5 Years) and At-Risk Patients (6 to 64 Years) (1 of 2 - PCV) 1969 PHQ-2 (Physician [place]) 1975 Hepatitis C 1981 Cervical Cancer Screening Pa p with HPV Testing (Age 30 to 64) Every 5 Years 1993 Cervical Cancer Screening wi th HPV 1993 Mammogram Screening 2003 Zoster Vaccines (1 of 2) 2013 COVID-19 Vaccine (3 2023-2 5 season) 2024 10/21/2021, 09/30/2021 Influenza Adult (#1) 2024 PHQ-2 (Physician [place]) 09/16/2024 DTaP, Tdap and Td Vaccines ( 2 - Td or Tdap) 04/23/2029 04/23/2019 RSV Immunization or 60+ Years (1 - 1-dose 75+ series) 2038 Meningococcal B Vaccine Aged Out No l onger eligible based on patient's age to complete this topic Meningococcal Vaccine Aged Out No capri caryn eligible based on patient's age to complete this topic RSV Immunizations Under 20 Months Aged Out No longer eligible b ased on patient's age to complete this topic Insurance [facility] Care Teams Business Operations Specialist Relationship Specialty Start Date End Date Zhen Rome MD [address] [facility] [address] [place] [address] PCP - General INTERNAL MEDICINE 06/20/22
--- OUTSIDE RECORDS SUMMARY | 2024-10-26 14:18 | XMS_ITS ---
Author Organization [facility] [employer] [facility] Address [address] [facility] [address] [place] [address] Care Team Providers Care Claim Approver Name Role Phone Zhen Rome MD Primary Care Provider UnavailCee Wallace Unavailable [phone] Allergies Allergen (clinical drug ingredient) Drug/Non Drug Allergy documented on EMR Reaction Allergy Type Onset Date Status predniSONE Unknown Drug Allergy 02/03/2024 Activ e trazodone Trazodone Unknown Drug Allergy 02/03/2024 Active Results Component Value Reference Range Notes UDT Reviewed date:08/25/2024 01:37:31 PM Interpretation: Performing Lab: Notes/Report: THC N 0 - 50 ng/ml Cocaine N 0 - 300 ng/ml Amphetamine P 0 - 1000 ng/ml Buprenorphine (BUP) N 0 - 10 ng/ml Secobarbital (Bar) N 0 - 300 ng/ml Oxazepam (BZO) N 0 - 300 ng/ml 3-dgjeymdrpi-1,4-ecjmgelx-7,3-diphenylpyrrolidine (JR P) N 0 - 300 ng/ml Methamphetamine (MET) N 0 - 1000 ng/ml Methylenedioxymethamphetamine (MDMA) N 0 - 500 ng/ml Morphine (MOP 300/[id number]) N 0 - 300 ng/ml Methadone (MTD) N 0 - 300 ng/ml Phencyclidine (PCP) N 0 - 25 ng/ml Propoxyphene (PPX) N 0 - 300 ng/ml Nortriptyline (TCA) N 0 - 1000 ng/ml Oxycodone N 0 - 300 ng/ml REASON FOR VISIT f/u Medications Medication SIG (Take, Route, Frequency, Duration) Notes Start Date End Date Status Lurasidone HCl 40 MG 1 tablet in the zachary carlsong with food Orally Once a day for 90 days 07/29/2024 Active Amphetamine-Dextroamphetami ne 30 MG 1 tablet Oral Twice a day for 30 days 08/25/2024 Active Entresto 49-51 MG TAKE 1 TABLET BY FAIZAN TH TWICE DAILY Oral for 90 Days Active SUMAtriptan Succinate 100 MG Oral 02/03/2024 Active Furosemide 20 MG Oral 02/03/2024 Ac tive clonazePAM 0.5 MG 1 tablet Oral three times a day for 30 days 08/25/2024 Active Escitalopram Oxalate 10 MG 1 tablet Oral Once a day for 90 days Active Social History Tobacco Use: Social History Observation Description Date Details (start date - stop date) Current Smoker NA - NA Sex Assigned At : Social History Observation Description Sex Assigned At Female Household Question Answer Notes Marital status: Sexual History Question Answer Notes Had sex in the past 12 months (vaginal, oral, or anal)? Yes with Men only Tobacco Control (Standard) Question Answer Notes Tobacco use: Current smoker Additional Findings: Tobacco user Light cigarett e smoker (1-9 cigs/day) AUDIT-C (Standard) Question Answer Notes Did you have a drink contain ing alcohol in the past year? Yes How often did you have six o r more drinks on one occasion in the past year? Less than monthly (1 point) How many drinks did you have on a typical day when you were drinking in the past year? 1 or 2 drinks (0 point) How often did you have a dri nk containing alcohol in the past year? Monthly or less (1 point) Points 2 Interpretation Negative Vital Signs Blood pressure systolic 118 mm Hg 08/25/20 24 Blood pressure diastolic 81 mm Hg 024 Heart Rate 103 /min 08/25/2024 Height 65.00 in 08/25/2024 Weight 153 lbs 08/25/2024 BMI 25.46 kg/m2 08/25/2024 Height-cm 165.10 cm 08/25/2024 Weight-kg 69.4 kg 08/25/2024 Encounters Encounter Location Date Provider Diagnosis [facility] [address] [address] 08/25/2024 Cee Asif Paranoid schizophren ia F20.0 ; Generalized anxiety disorder F41.1 ; Attention-deficit hyperactivity disorder, combined type F90.2 ; Primary insomnia F51.01 ; Other retirement (current) drug therapy Z79.899 ; Elevated blood pressure reading R03.0 and Tobacco dependence F17.200 Assessments Encounter Date Diagnosis (ICD Code) Assessment Notes Treatment Notes Treatment Clinical Notes Section Notes 08/25/2024 Paranoid schizophrenia (ICD-10 - F20.0) Schizophrenia: Care Instructions material was published, Learning About How to Get Help During a Mental Health Crisis material was published, Learning About Movement Disorders From Antipsychotic Medicines material was published, Medicine for Schizophrenia: Care Instructions material was published 1. Chronic paranoid schizophrenia - discuss rx options Latuda 40 mg with evening meal eat with 350 calories with rx rx hx Vraylar, Latuda, Seroquel, Risperdal, Abilify, Zyprexa, Caplyta, AIMS= 2 01/25/22 Dentures AIMS= 0 07/02/24 Dentures SLUMS= 28 07/02/24 monitor A/V psychosis, delusions, and paranoia and depression rx [facility] PCP educated on metabolic and movement d/o SSRI/SNRI side effects discussed including but not limited to, gastric upset, nausea, vomiting, diarrhea and/or constipation, weight changes, sexual side effects including loss of libido, increased suicidal thoughts/behavior s in children and young adults, and serotonin syndrome. Second generation antipsychotics (SGAs) have metabolic syndrome issues with weight gain, increase in prolactin, increased waist circumference, increased lipids, and increased glucose. Thus routine monitoring of weight, metabolic labs, etc. is indicated. A general rank ordering of antipsychotics that have the greatest to the least risk of metabolic effects is olanzapine, quetiapine, risperidone, ziprasidone, and aripiprazole. However, weight gain can occur with all of these drugs and considerable variability exists among patients receiving the same drug regarding the risk of metabolic effects. Anti-psychotic agents not only increase the risk of metabolic disorder, they also increase the risk of CVA, akathisia, and movement disorders including EPS or tardive dyskinesia (more common with first generation antipsychotics) and more educated on all medications, benefits, side effects and risk, and educated on depression, anxiety, and ADHD, psychosis mood d/o and educated on compliance of medications, appointment's, continue therapy discussion with patient about course of treatment and patient instructions.F20. 0: Paranoid schizophrenia 2. Generalized anxiety disorder -Clonazepam 0.5 mg three times a day - educated to take as prescribed patient educated on no early refills on control substance and take as prescribed Lexapro 10 mg daily for depression and anxiety Seen PCP with sores to legs from picking - Vistaril PCP prescribes Discussed and educated pt regarding benzodiazepines are generally not intended for prolonged use and that use can cause tolerance, dependence, depression, and associated memory issues including dementias (this list is not exhaustive). Benzodiazepine use is generally not recommended concurrently with pain medications and/or other controlled substances due to increased risks of profound sedation, respiratory depression, coma, and even . They are not to be used with any alcohol, as this combination can also be lethal. Patient was provided caution 3. Attention deficit hyperactivity disorder, combined type Adderall 30 mg twice a day - filled 08/26/24 educated on elevated B/P today and stimulate risk and refer to PCP seen 07/02/24 and overhead line worker and new B/P RX 4. Primary insomnia - sleep hygeine HX RX Ramelteon 8 mg did not help patient reported Trazodone caused tingling in feet and legs no control sleep aid related on Benzo 5. elevated B/P - seen overhead line worker and new rx educated on healthy b/p 120/80 monitor b/p at home refer to PCP, Urgent care/ER heart healthy diet and excise limit salt intake limit soda intake and caffiene increase water seen in ER - Lasix seen PCP 07/02/24 Educated on stimulates and increase B/P and risk tobacco user Do not smoke. Nicotine and other chemicals in cigarettes and cigars can cause lung damage. Ask your healthcare provider for information if you currently smoke and need help to quit. E-cigarettes or smokeless tobacco still contain nicotine. Talk to your healthcare provider before you use these products. education on decrease to stopping nicotine products and stop smoking hotline given 7.. Long-term drug therapy Discussion Notes refer to therapy 08/25/2024 Generalized anxiety disorder (ICD-10 - F41.1) Generalized Anxiety Disorder: Care Instructions material was published, Learning About Generalized Anxiety Disorder material was published, Learning About Anxiety Disorders material was published 1. Chronic paranoid schizophrenia - discuss rx options Latuda 40 mg with evening meal eat with 350 calories with rx rx hx Vraylar, Latuda, Seroquel, Risperdal, Abilify, Zyprexa, Caplyta, AIMS= 2 01/25/22 Dentures AIMS= 0 07/02/24 Dentures SLUMS= 28 07/02/24 monitor A/V psychosis, delusions, and paranoia and depression rx [facility] PCP educated on metabolic and movement d/o SSRI/SNRI side effects discussed including but not limited to, gastric upset, nausea, vomiting, diarrhea and/or constipation, weight changes, sexual side effects including loss of libido, increased suicidal thoughts/behavior s in children and young adults, and serotonin syndrome. Second generation antipsychotics (SGAs) have metabolic syndrome issues with weight gain, increase in prolactin, increased waist circumference, increased lipids, and increased glucose. Thus routine monitoring of weight, metabolic labs, etc. is indicated. A general rank ordering of antipsychotics that have the greatest to the least risk of metabolic effects is olanzapine, quetiapine, risperidone, ziprasidone, and aripiprazole. However, weight gain can occur with all of these drugs and considerable variability exists among patients receiving the same drug regarding the risk of metabolic effects. Anti-psychotic agents not only increase the risk of metabolic disorder, they also increase the risk of CVA, akathisia, and movement disorders including EPS or tardive dyskinesia (more common with first generation antipsychotics) and more educated on all medications, benefits, side effects and risk, and educated on depression, anxiety, and ADHD, psychosis mood d/o and educated on compliance of medications, appointment's, continue therapy discussion with patient about course of treatment and patient instructions.F20. 0: Paranoid schizophrenia 2. Generalized anxiety disorder -Clonazepam 0.5 mg three times a day - educated to take as prescribed patient educated on no early refills on control substance and take as prescribed Lexapro 10 mg daily for depression and anxiety Seen PCP with sores to legs from picking - Vistaril PCP prescribes Discussed and educated pt regarding benzodiazepines are generally not intended for prolonged use and that use can cause tolerance, dependence, depression, and associated memory issues including dementias (this list is not exhaustive). Benzodiazepine use is generally not recommended concurrently with pain medications and/or other controlled substances due to increased risks of profound sedation, respiratory depression, coma, and even . They are not to be used with any alcohol, as this combination can also be lethal. Patient was provided caution 3. Attention deficit hyperactivity disorder, combined type Adderall 30 mg twice a day - filled 08/26/24 educated on elevated B/P today and stimulate risk and refer to PCP seen 07/02/24 and overhead line worker and new B/P RX 4. Primary insomnia - sleep hygeine HX RX Ramelteon 8 mg did not help patient reported Trazodone caused tingling in feet and legs no control sleep aid related on Benzo 5. elevated B/P - seen overhead line worker and new rx educated on healthy b/p 120/80 monitor b/p at home refer to PCP, Urgent care/ER heart healthy diet and excise limit salt intake limit soda intake and caffiene increase water seen in ER [id number]- Lasix seen PCP 07/02/24 Educated on stimulates and increase B/P and risk tobacco user Do not smoke. Nicotine and other chemicals in cigarettes and cigars can cause lung damage. Ask your healthcare provider for information if you currently smoke and need help to quit. E-cigarettes or smokeless tobacco still contain nicotine. Talk to your healthcare provider before you use these products. education on decrease to stopping nicotine products and stop smoking hotline given 7.. Long-term drug therapy Discussion Notes refer to therapy 08/25/2024 Attention-defici t hyperactivity disorder, combined type (ICD-10 - F90.2) Learning About Attention Deficit Hyperactivity Disorder (ADHD) in Adults material was published, Learning About Stimulant Medicines for Attention Deficit Hyperactivity Disorder (ADHD) material was published 1. Chronic paranoid schizophrenia - discuss rx options Latuda 40 mg with evening meal eat with 350 calories with rx rx hx Vraylar, Latuda, Seroquel, Risperdal, Abilify, Zyprexa, Caplyta, AIMS= 2 01/25/22 Dentures AIMS= 0 07/02/24 Dentures SLUMS= 28 07/02/24 monitor A/V psychosis, delusions, and paranoia and depression rx [facility] PCP educated on metabolic and movement d/o SSRI/SNRI side effects discussed including but not limited to, gastric upset, nausea, vomiting, diarrhea and/or constipation, weight changes, sexual side effects including loss of libido, increased suicidal thoughts/behavior s in children and young adults, and serotonin syndrome. Second generation antipsychotics (SGAs) have metabolic syndrome issues with weight gain, increase in prolactin, increased waist circumference, increased lipids, and increased glucose. Thus routine monitoring of weight, metabolic labs, etc. is indicated. A general rank ordering of antipsychotics that have the greatest to the least risk of metabolic effects is olanzapine, quetiapine, risperidone, ziprasidone, and aripiprazole. However, weight gain can occur with all of these drugs and considerable variability exists among patients receiving the same drug regarding the risk of metabolic effects. Anti-psychotic agents not only increase the risk of metabolic disorder, they also increase the risk of CVA, akathisia, and movement disorders including EPS or tardive dyskinesia (more common with first generation antipsychotics) and more educated on all medications, benefits, side effects and risk, and educated on depression, anxiety, and ADHD, psychosis mood d/o and educated on compliance of medications, appointment's, continue therapy discussion with patient about course of treatment and patient instructions.F20. 0: Paranoid schizophrenia 2. Generalized anxiety disorder -Clonazepam 0.5 mg three times a day - educated to take as prescribed patient educated on no early refills on control substance and take as prescribed Lexapro 10 mg daily for depression and anxiety Seen PCP with sores to legs from picking - Vistaril PCP prescribes Discussed and educated pt regarding benzodiazepines are generally not intended for prolonged use and that use can cause tolerance, dependence, depression, and associated memory issues including dementias (this list is not exhaustive). Benzodiazepine use is generally not recommended concurrently with pain medications and/or other controlled substances due to increased risks of profound sedation, respiratory depression, coma, and even . They are not to be used with any alcohol, as this combination can also be lethal. Patient was provided caution 3. Attention deficit hyperactivity disorder, combined type Adderall 30 mg twice a day - filled 08/26/24 educated on elevated B/P today and stimulate risk and refer to PCP seen 07/02/24 and overhead line worker and new B/P RX 4. Primary insomnia - sleep hygeine HX RX Ramelteon 8 mg did not help patient reported Trazodone caused tingling in feet and legs no control sleep aid related on Benzo 5. elevated B/P - seen overhead line worker and new rx educated on healthy b/p 120/80 monitor b/p at home refer to PCP, Urgent care/ER heart healthy diet and excise limit salt intake limit soda intake and caffiene increase water seen in ER - Lasix seen PCP 07/02/24 Educated on stimulates and increase B/P and risk tobacco user Do not smoke. Nicotine and other chemicals in cigarettes and cigars can cause lung damage. Ask your healthcare provider for information if you currently smoke and need help to quit. E-cigarettes or smokeless tobacco still contain nicotine. Talk to your healthcare provider before you use these products. education on decrease to stopping nicotine products and stop smoking hotline given 7.. Long-term drug therapy Discussion Notes refer to therapy 08/25/2024 Primary insomnia (ICD-10 - F51.01) 1. Chronic paranoid schizophrenia - discuss rx options Latuda 40 mg with evening meal eat with 350 calories with rx rx hx Vraylar, Latuda, Seroquel, Risperdal, Abilify, Zyprexa, Caplyta, AIMS= 2 01/25/22 Dentures AIMS= 0 07/02/24 Dentures SLUMS= 28 07/02/24 monitor A/V psychosis, delusions, and paranoia and depression rx [facility] PCP educated on metabolic and movement d/o SSRI/SNRI side effects discussed including but not limited to, gastric upset, nausea, vomiting, diarrhea and/or constipation, weight changes, sexual side effects including loss of libido, increased suicidal thoughts/behavior s in children and young adults, and serotonin syndrome. Second generation antipsychotics (SGAs) have metabolic syndrome issues with weight gain, increase in prolactin, increased waist circumference, increased lipids, and increased glucose. Thus routine monitoring of weight, metabolic labs, etc. is indicated. A general rank ordering of antipsychotics that have the greatest to the least risk of metabolic effects is olanzapine, quetiapine, risperidone, ziprasidone, and aripiprazole. However, weight gain can occur with all of these drugs and considerable variability exists among patients receiving the same drug regarding the risk of metabolic effects. Anti-psychotic agents not only increase the risk of metabolic disorder, they also increase the risk of CVA, akathisia, and movement disorders including EPS or tardive dyskinesia (more common with first generation antipsychotics) and more educated on all medications, benefits, side effects and risk, and educated on depression, anxiety, and ADHD, psychosis mood d/o and educated on compliance of medications, appointment's, continue therapy discussion with patient about course of treatment and patient instructions.F20. 0: Paranoid schizophrenia 2. Generalized anxiety disorder -Clonazepam 0.5 mg three times a day - educated to take as prescribed patient educated on no early refills on control substance and take as prescribed Lexapro 10 mg daily for depression and anxiety Seen PCP with sores to legs from picking - Vistaril PCP prescribes Discussed and educated pt regarding benzodiazepines are generally not intended for prolonged use and that use can cause tolerance, dependence, depression, and associated memory issues including dementias (this list is not exhaustive). Benzodiazepine use is generally not recommended concurrently with pain medications and/or other controlled substances due to increased risks of profound sedation, respiratory depression, coma, and even . They are not to be used with any alcohol, as this combination can also be lethal. Patient was provided caution 3. Attention deficit hyperactivity disorder, combined type Adderall 30 mg twice a day - filled 08/26/24 educated on elevated B/P today and stimulate risk and refer to PCP seen 07/02/24 and overhead line worker and new B/P RX 4. Primary insomnia - sleep hygeine HX RX Ramelteon 8 mg did not help patient reported Trazodone caused tingling in feet and legs no control sleep aid related on Benzo 5. elevated B/P - seen overhead line worker and new rx educated on healthy b/p 120/80 monitor b/p at home refer to PCP, Urgent care/ER heart healthy diet and excise limit salt intake limit soda intake and caffiene increase water seen in ER [id number]- Lasix seen PCP 07/02/24 Educated on stimulates and increase B/P and risk tobacco user Do not smoke. Nicotine and other chemicals in cigarettes and cigars can cause lung damage. Ask your healthcare provider for information if you currently smoke and need help to quit. E-cigarettes or smokeless tobacco still contain nicotine. Talk to your healthcare provider before you use these products. education on decrease to stopping nicotine products and stop smoking hotline given 7.. Long-term drug therapy Discussion Notes refer to therapy 08/25/2024 Other terminal operations supervisor (current) drug therapy (ICD-10 - Z79.899) 1. Chronic paranoid schizophrenia - discuss rx options Latuda 40 mg with evening meal eat with 350 calories with rx rx hx Vraylar, Latuda, Seroquel, Risperdal, Abilify, Zyprexa, Caplyta, AIMS= 2 01/25/22 Dentures AIMS= 0 07/02/24 Dentures SLUMS= 28 07/02/24 monitor A/V psychosis, delusions, and paranoia and depression rx [facility] PCP educated on metabolic and movement d/o SSRI/SNRI side effects discussed including but not limited to, gastric upset, nausea, vomiting, diarrhea and/or constipation, weight changes, sexual side effects including loss of libido, increased suicidal thoughts/behavior s in children and young adults, and serotonin syndrome. Second generation antipsychotics (SGAs) have metabolic syndrome issues with weight gain, increase in prolactin, increased waist circumference, increased lipids, and increased glucose. Thus routine monitoring of weight, metabolic labs, etc. is indicated. A general rank ordering of antipsychotics that have the greatest to the least risk of metabolic effects is olanzapine, quetiapine, risperidone, ziprasidone, and aripiprazole. However, weight gain can occur with all of these drugs and considerable variability exists among patients receiving the same drug regarding the risk of metabolic effects. Anti-psychotic agents not only increase the risk of metabolic disorder, they also increase the risk of CVA, akathisia, and movement disorders including EPS or tardive dyskinesia (more common with first generation antipsychotics) and more educated on all medications, benefits, side effects and risk, and educated on depression, anxiety, and ADHD, psychosis mood d/o and educated on compliance of medications, appointment's, continue therapy discussion with patient about course of treatment and patient instructions.F20. 0: Paranoid schizophrenia 2. Generalized anxiety disorder -Clonazepam 0.5 mg three times a day - educated to take as prescribed patient educated on no early refills on control substance and take as prescribed Lexapro 10 mg daily for depression and anxiety Seen PCP with sores to legs from picking - Vistaril PCP prescribes Discussed and educated pt regarding benzodiazepines are generally not intended for prolonged use and that use can cause tolerance, dependence, depression, and associated memory issues including dementias (this list is not exhaustive). Benzodiazepine use is generally not recommended concurrently with pain medications and/or other controlled substances due to increased risks of profound sedation, respiratory depression, coma, and even . They are not to be used with any alcohol, as this combination can also be lethal. Patient was provided caution 3. Attention deficit hyperactivity disorder, combined type Adderall 30 mg twice a day - filled 08/26/24 educated on elevated B/P today and stimulate risk and refer to PCP seen 07/02/24 and overhead line worker and new B/P RX 4. Primary insomnia - sleep hygeine HX RX Ramelteon 8 mg did not help patient reported Trazodone caused tingling in feet and legs no control sleep aid related on Benzo 5. elevated B/P - seen overhead line worker and new rx educated on healthy b/p 120/80 monitor b/p at home refer to PCP, Urgent care/ER heart healthy diet and excise limit salt intake limit soda intake and caffiene increase water seen in ER [id number]- Lasix seen PCP 07/02/24 Educated on stimulates and increase B/P and risk tobacco user Do not smoke. Nicotine and other chemicals in cigarettes and cigars can cause lung damage. Ask your healthcare provider for information if you currently smoke and need help to quit. E-cigarettes or smokeless tobacco still contain nicotine. Talk to your healthcare provider before you use these products. education on decrease to stopping nicotine products and stop smoking hotline given 7.. Long-term drug therapy Discussion Notes refer to therapy 08/25/2024 Elevated blood pressure reading (ICD-10 - R03.0) Learning About High Blood Pressure material was published, High Blood Pressure: Care Instructions material was published 1. Chronic paranoid schizophrenia - discuss rx options Latuda 40 mg with evening meal eat with 350 calories with rx rx hx Vraylar, Latuda, Seroquel, Risperdal, Abilify, Zyprexa, Caplyta, AIMS= 2 01/25/22 Dentures AIMS= 0 07/02/24 Dentures SLUMS= 28 07/02/24 monitor A/V psychosis, delusions, and paranoia and depression rx [facility] P[facility] educated on metabolic and movement d/o SSRI/SNRI side effects discussed including but not limited to, gastric upset, nausea, vomiting, diarrhea and/or constipation, weight changes, sexual side effects including loss of libido, increased suicidal thoughts/behavior s in children and young adults, and serotonin syndrome. Second generation antipsychotics (SGAs) have metabolic syndrome issues with weight gain, increase in prolactin, increased waist circumference, increased lipids, and increased glucose. Thus routine monitoring of weight, metabolic labs, etc. is indicated. A general rank ordering of antipsychotics that have the greatest to the least risk of metabolic effects is olanzapine, quetiapine, risperidone, ziprasidone, and aripiprazole. However, weight gain can occur with all of these drugs and considerable variability exists among patients receiving the same drug regarding the risk of metabolic effects. Anti-psychotic agents not only increase the risk of metabolic disorder, they also increase the risk of CVA, akathisia, and movement disorders including EPS or tardive dyskinesia (more common with first generation antipsychotics) and more educated on all medications, benefits, side effects and risk, and educated on depression, anxiety, and ADHD, psychosis mood d/o and educated on compliance of medications, appointment's, continue therapy discussion with patient about course of treatment and patient instructions.F20. 0: Paranoid schizophrenia 2. Generalized anxiety disorder -Clonazepam 0.5 mg three times a day - educated to take as prescribed patient educated on no early refills on control substance and take as prescribed Lexapro 10 mg daily for depression and anxiety Seen PCP with sores to legs from picking - Vistaril PCP prescribes Discussed and educated pt regarding benzodiazepines are generally not intended for prolonged use and that use can cause tolerance, dependence, depression, and associated memory issues including dementias (this list is not exhaustive). Benzodiazepine use is generally not recommended concurrently with pain medications and/or other controlled substances due to increased risks of profound sedation, respiratory depression, coma, and even . They are not to be used with any alcohol, as this combination can also be lethal. Patient was provided caution 3. Attention deficit hyperactivity disorder, combined type Adderall 30 mg twice a day - filled 08/26/24 educated on elevated B/P today and stimulate risk and refer to PCP seen 07/02/24 and overhead line worker and new B/P RX 4. Primary insomnia - sleep hygeine HX RX Ramelteon 8 mg did not help patient reported Trazodone caused tingling in feet and legs no control sleep aid related on Benzo 5. elevated B/P - seen overhead line worker and new rx educated on healthy b/p 120/80 monitor b/p at home refer to PCP, Urgent care/ER heart healthy diet and excise limit salt intake limit soda intake and caffiene increase water seen in ER - Lasix seen PCP 07/02/24 Educated on stimulates and increase B/P and risk tobacco user Do not smoke. Nicotine and other chemicals in cigarettes and cigars can cause lung damage. Ask your healthcare provider for information if you currently smoke and need help to quit. E-cigarettes or smokeless tobacco still contain nicotine. Talk to your healthcare provider before you use these products. education on decrease to stopping nicotine products and stop smoking hotline given 7.. Long-term drug therapy Discussion Notes refer to therapy 08/25/2024 Tobacco dependence (ICD-10 - F17.200) Deciding About Using Medicines To Quit Smoking material was published, Learning About Benefits of Quitting Smoking material was published, Quitting Tobacco: Care Instructions material was published, Stopping Smokeless Tobacco Use: Care Instructions material was published 1. Chronic paranoid schizophrenia - discuss rx options Latuda 40 mg with evening meal eat with 350 calories with rx rx hx Vraylar, Latuda, Seroquel, Risperdal, Abilify, Zyprexa, Caplyta, AIMS= 2 01/25/22 Dentures AIMS= 0 07/02/24 Dentures SLUMS= 28 07/02/24 monitor A/V psychosis, delusions, and paranoia and depression rx [facility] PCP educated on metabolic and movement d/o SSRI/SNRI side effects discussed including but not limited to, gastric upset, nausea, vomiting, diarrhea and/or constipation, weight changes, sexual side effects including loss of libido, increased suicidal thoughts/behavior s in children and young adults, and serotonin syndrome. Second generation antipsychotics (SGAs) have metabolic syndrome issues with weight gain, increase in prolactin, increased waist circumference, increased lipids, and increased glucose. Thus routine monitoring of weight, metabolic labs, etc. is indicated. A general rank ordering of antipsychotics that have the greatest to the least risk of metabolic effects is olanzapine, quetiapine, risperidone, ziprasidone, and aripiprazole. However, weight gain can occur with all of these drugs and considerable variability exists among patients receiving the same drug regarding the risk of metabolic effects. Anti-psychotic agents not only increase the risk of metabolic disorder, they also increase the risk of CVA, akathisia, and movement disorders including EPS or tardive dyskinesia (more common with first generation antipsychotics) and more educated on all medications, benefits, side effects and risk, and educated on depression, anxiety, and ADHD, psychosis mood d/o and educated on compliance of medications, appointment's, continue therapy discussion with patient about course of treatment and patient instructions.F20. 0: Paranoid schizophrenia 2. Generalized anxiety disorder -Clonazepam 0.5 mg three times a day - educated to take as prescribed patient educated on no early refills on control substance and take as prescribed Lexapro 10 mg daily for depression and anxiety Seen PCP with sores to legs from picking - Vistaril PCP prescribes Discussed and educated pt regarding benzodiazepines are generally not intended for prolonged use and that use can cause tolerance, dependence, depression, and associated memory issues including dementias (this list is not exhaustive). Benzodiazepine use is generally not recommended concurrently with pain medications and/or other controlled substances due to increased risks of profound sedation, respiratory depression, coma, and even . They are not to be used with any alcohol, as this combination can also be lethal. Patient was provided caution 3. Attention deficit hyperactivity disorder, combined type Adderall 30 mg twice a day - filled 08/26/24 educated on elevated B/P today and stimulate risk and refer to PCP seen 07/02/24 and overhead line worker and new B/P RX 4. Primary insomnia - sleep hygeine HX RX Ramelteon 8 mg did not help patient reported Trazodone caused tingling in feet and legs no control sleep aid related on Benzo 5. elevated B/P - seen overhead line worker and new rx educated on healthy b/p 120/80 monitor b/p at home refer to PCP, Urgent care/ER heart healthy diet and excise limit salt intake limit soda intake and caffiene increase water seen in ER [id number] Lasix seen PCP 07/02/24 Educated on stimulates and increase B/P and risk tobacco user Do not smoke. Nicotine and other chemicals in cigarettes and cigars can cause lung damage. Ask your healthcare provider for information if you currently smoke and need help to quit. E-cigarettes or smokeless tobacco still contain nicotine. Talk to your healthcare provider before you use these products. education on decrease to stopping nicotine products and stop smoking hotline given 7.. Long-term drug therapy Discussion Notes refer to therapy Plan Of Treatment Medication Medication Name Sig Start Date Stop Date Notes Lurasidone HCl 40 MG 1 tablet in the zachary dario with food Orally Once a day for 90 days 07/29/2024 Amphetamine-Dextroamphetamin e 30 MG 1 tablet Oral Twice a day for 30 days 08/25/2024 clonazePAM 0.5 MG 1 tablet Oral three times a day for 30 days 08/25/2024 Escitalopram Oxalate 10 MG 1 tablet Oral Once a day for 90 days Treatment Notes Assessment Notes Paranoid schizophrenia Schizophrenia: Ca re Instructions material was published, Learning About How to Get Help During a Mental Health Crisis material was published, Learning About Movement Disorders From Antipsychotic Medicines material was published, Medicine for Schizophrenia: Care Instructions material was published Generalized anxiety disorder Generalized Anxiety Disorder: Care Instructions material was published, Learning About Generalized Anxiety Disorder material was published, Learning About Anxiety Disorders material was published Attention-deficit hyperactiv ity disorder, combined type Learning About Attention Deficit Hyperactivity Disorder (ADHD) in Adults material was published, Learning About Stimulant Medicines for Attention Deficit Hyperactivity Disorder (ADHD) material was published Elevated blood pressure reading Learning About High Blood Pressure material was published, High Blood Pressure: Care Instructions material was published Tobacco dependence Deciding About Using Medicines To Quit Smoking material was published, Learning About Benefits of Quitting Smoking material was published, Quitting Tobacco: Care Instructions material was published, Stopping Smokeless Tobacco Use: Care Instructions material was published Next Appt Details Follow Up: 3 Months, Reason: f/u rx Provider Name:Cee Asif , 11/19/2024 03:45:00 PM, [facility] [address] [facility] [address], [place], [address], Progress Notes * CRISTINA MELCHORDOB:1965 (59 yo F)Acc No.[id number]:08/25/2024 Patient: CRISTINA OLMEDO Provider: CAIT RODRIGUEZP :1965 A ge:59 Y S ex:Female Date:08/25/2024 Address:[address] [place], [place] [id number] Pcp:Zhen Rome MD Subjective: * Chief Complaints: * 1 . F/u. * HPI: D epression Screening: LAMAR-7 (2018 Edition) F eeling nervous, anxious, or on edge?Several days, N ot being able to stop or control worrying N ot at all, W orrying too much about different things S everal days, T rouble relaxing N ot at all, B eing so restless that it is hard to sit still N ot at all, B ecoming easily annoyed or irritable?Several days, F eeling afraid as if something awful might happen N ot at all, T otal LAMAR-7 Score 3 , I nterpretation of Total ( 0 to 4) No Anxiety. C [place]-Suicide Severity Rating Scale: Suicide Risk (CSRS-screener) i n the past one month Have you wished you were or wished you could go to sleep and not wake up? N o, i n the past one month Have you actually had any thoughts of killing yourself? N o. D epression screening: PHQ-9 L ittle interest or pleasure in doing things S everal days, F eeling down, depressed, or hopeless S everal days, T rouble falling or staying asleep, or sleeping too much S everal days, F eeling tired or having little energy N ot at all, P oor appetite or overeating N ot at all, F eeling bad about yourself or that you are a failure, or have let yourself or your family down N ot at all, T rouble concentrating on things, such as reading the newspaper or watching television N ot at all, M oving or speaking so slowly that other people could have noticed; or the opposite, being so fidgety or restless that you have been moving around a lot more than usual N ot at all, T houghts that you would be better off or of hurting yourself in some way N ot at all, T otal Score 3 , I nterpretation M inimal Depression. I ntervention D epression Screening Findings?Positve, F ollow-Up for Depression M ental health treatment assessment, Patient follow-up to return when and if necessary, S uicide Risk Assessment Performed , A dditional Evaluation for Depression P sychiatric interview and evaluation, N donavon of the standardized tool used for adult depression screening: P atient Health Questionnaire (PHQ-9). 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, mood been good and I want to decorate for [place] but been sick I have holiday spirit and been shopping, I was paranoid week half ago, and better now, but also switch meds lately I saw a heart provider and on new b/p rx and also found hitial hernia and GERD and I feel full all the time I am seeing GI provider about it, no sad, down, hopeless or helpless, no A/C/V hallucinations, no alexandre, no hypomania, I feel anxious, with things between but better now I feel like so much to do for [place] and bother me, normal things, not restless or fidgety, and sleep 90% better last week half average 8 hours now, energy good unless s ick and motivation and interest good, concentration and focus good, tolerating rx and no s/e no abnormal involuntary movements, no delusions I feel I just need tostay on same rx for a while and let it work and switch b/P RX also help, no SI/HI,? rx hx Vraylar, Latuda, Seroquel, Risperdal, Abilify, Zyprexa, Caplyta,Lexapro, Topamax, Trazodone, Ramelteon, Mealtonin, Zoloft, Paxil, Prozac, Wellbutrin, Xanax, Clonazepam, Adderall, Effexor, Buspar, Viibyrd, PCP prescribed my Vistaril and made legs for itching ETOH- occasional social 3 mix drinks mazin Smoking current 1/2 ppd x 32 years drugs denies labs- ER 06/28/24 seen PCP 07/02/24 denies SI/HI no plans or intent no past attempts no thoughts harm to self or others, no FH Notes:picks legs with anxiety hx delusions and hallucinations and paranoia Psychosis H/O Reported by andrés ibarra.Patient endorses: n o evidence of psychosis; no auditory hallucinations; no visual hallucinations; no preoccupations; no delusions; no paranoia; no avolition; no apathy; no cognitive changes; no disorganized behavior; hx A/V hallucinations and delusions, paranoia see and hear GOD Notes:hx tv and radio talks to me and noise and short and no command hallucinations HX thinks Dr. Day is tracking her since his name popped up on portal and chemicals and asked staff about lady talking and then will tell her to be quite and no one there, UDS today and paranoia asked staff about it and said the chair had chemical on it and making skin peel. * ROS: P erformance Met: N ormal blood pressure reading documented, follow-up not required ( [id number])Patient reports i ncomplete emptying b ut reports no difficulty urinating and no increased frequency. ON Lasix 06/28/24 started S he reports (HX pick legs and sores) improved She reports m igraines (improved) b ut reports no loss of consciousness, no weakness, no numbness, no seizures, no dizziness, no tremor, and no gait dysfunction. S he reports mild depression, improved s leep disturbances, improved restless sleep, and mild anxiety b ut reports no hallucinations, no suicidal thoughts, no mood swings, no memory loss, and no agitation; hx delusions and paranoia hx. She reports f atigue. presently has flu and been sick with sinus last 6-8 w eeks She reports no fever, no significant weight gain, and weight loss- on Lasix. new B/P rx She reports no chest pain, no arm pain on exertion, no shortness of breath when walking, no shortness of breath when lying down, and no palpitations. She reports cough and no shortness of breath. She reports no abdominal pain, no nausea, no vomiting, no constipation, less appetite, and no diarrhea. hitial hernia and GERD She reports no muscle aches. * Medical History: Andrés llamas: Attention deficit hyperactivity disorder, combined type, Chronic paranoid schizophrenia, Generalized anxiety disorder, Long-term drug therapy, Moderate recurrent major depression, Primary insomnia, Tobacco user, ,. * Social History: T obacco Use: T obacco Control (Standard) T obacco use: C urrent smoker, A dditional Findings: Tobacco user L ight cigarette smoker (1-9 cigs/day). M igrated Social History: M igrated Social History: Alcohol Intake: Moderate 12/02/2023,Tobacco Years: Current every day smoker 02/16/2020. S exual History: S exual History H ad sex in the past 12 months (vaginal, oral, or anal)? Y es, w ith M en only. D rug/Alcohol: D rugs H ave you used drugs other than those for medical reasons in the past 12 months??No. C affeine I ntake: 1 -2 cups per day. D o you smoke marijuana?: Denies. Do you drink alcohol?: Socially, Yes. AUDIT-C (Standard) D id you have a drink containing alcohol in the past year? Y es, H ow often did you have six or more drinks on one occasion in the past year? L ess than monthly (1 point), H ow many drinks did you have on a typical day when you were drinking in the past year? 1 or 2 drinks (0 point), H ow often did you have a drink containing alcohol in the past year? M onthly or less (1 point), P oints 2 , I nterpretation N egative. H ousehold: H ousehold M arital status: m arried. M iscellaneous: A dvance Care Planning A re you your own decision-maker Y es, D o you have Power of Laundry Press Operator for Health or Medical? N o. * Medications: T aking Escitalopram Oxalate 10 MG Tablet 1 tablet Oral Once a day , Taking clonazePAM 0.5 MG Tablet 1 tablet Oral three times a day , Taking Furosemide 20 MG Tablet Oral , Taking SUMAtriptan Succinate 100 MG Tablet Oral , Taking Amphetamine-Dextroamphetamine 30 MG Tablet 1 tablet Oral Twice a day , Taking Lurasidone HCl 40 MG Tablet 1 tablet in the evening with food Orally Once a day , Taking Entresto 49-51 MG Tablet TAKE 1 TABLET BY MOUTH TWICE DAILY Oral , Discontinued hydrOXYzine HCl 25 MG Tablet Oral , Discontinued Topiramate 100 MG Tablet 1 tablet Oral twice a day , Medication List reviewed and reconciled with the patient * Allergies: p redniSONE: Allergy - Onset Date 02/03/2024, Trazodone: Allergy - Onset Date 02/03/2024. Objective: * Vitals: B P:118/81mm Hg, HR:103/min, Wt:153lbs, Wt-k.4 kg, Ht: 65.00 in, Ht-cm: 165.10 cm, BMI:25.46Index, Body Surface Area: 1.78. * Examination: P sychiatry: Appearance: w ell-groomed, well-nourished, appears stated age, slender build. Abnormal body movements: n one. Affect / mood: a ppropriate, full range. Aggression: l ow. Anger control: g ood. Attention: g ood. Attitude: c ooperative. Homicidal ideation: n one. Suicidal ideation: n one. Memory status: n o impairment noted. Degree of awareness of surroundings: w ithin normal limits.? Delusions: n o. Hallucinations: n o. Impulse control: g ood. Insight: g ood. Intellectual functioning: a verage. Comprehension - Intellectual function: a verage. Judgement: g ood. Orientation: a wake, alert and oriented x 3. Perceptual disorders: h x delusions. Psychomotor activity: w ithin normal range. Sexual impulse control: g ood. Speech / language: a ppropriate pitch/modulation, clear and coherent, proper grammar used. Thought content: a ppropriate. Thought process: i ntact. N eurology: Cognition Assessment Tools Used . Assessment: * Assessment: 1. P aranoid schizophrenia - F20.0 (Primary) 2 . G eneralized anxiety disorder - F41.1 3 . A ttention-deficit hyperactivity disorder, combined type - F90.2? 4. P rimary insomnia - F51.01 5 . 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 E levated blood pressure reading - R03.0 ? 7 . T obacco dependence - F17.200 1. Chronic paranoid schizoph ermias - discuss rx options L atuda 40 mg with evening meal eat with 350 calories with rx rx hx Vraylar, Latuda, Seroquel, Risperdal, Abilify, Zyprexa, Caplyta, AIMS= 2 01/25/22 Dentures AIMS= 0 07/02/24 Dentures SLUMS= 28 07/02/24 monitor A/V psychosis, delusions, and paranoia and depression rx [facility] PCP educated on metabolic and movement d/o SSRI/SNRI side effects discussed including but not limited to, gastric upset, nausea, vomiting, diarrhea and/or constipation, weight changes, sexual side effects including loss of libido, increased suicidal thoughts/behaviors in children and young adults, and serotonin syndrome. Second generation antipsychotics (SGAs) have metabolic syndrome issues with weight gain, increase in prolactin, increased waist circumference, increased lipids, and increased glucose. Thus routine monitoring of weight, metabolic labs, etc. is indicated. A general rank ordering of antipsychotics that have the greatest to the least risk of metabolic effects is olanzapine, quetiapine, risperidone, ziprasidone, and aripiprazole. However, weight gain can occur with all of these drugs and considerable variability exists among patients receiving the same drug regarding the risk of metabolic effects. Anti-psychotic agents not only increase the risk of metabolic disorder, they also increase the risk of CVA, akathisia, and movement disorders including EPS or tardive dyskinesia (more common with first generation antipsychotics) and more educated on all medications, benefits, side effects and risk, and educated on depression, anxiety, and ADHD, psychosis mood d/o and educated on compliance of medications, appointment's, continue therapy discussion with patient about course of treatment and patient instructions.F20.0: Paranoid schizophrenia 2. Generalized anxiety disorder -Clonazepam 0.5 mg three times a day - educated to take as prescribed patient educated on no early refills on control substance and take as prescribed Lexapro 10 mg daily for depression and anxiety Seen PCP with sores to legs from picking - Vistaril PCP prescribes Discussed and educated pt regarding benzodiazepines are generally not intended for prolonged use and that use can cause tolerance, dependence, depression, and associated memory issues including dementias (this list is not exhaustive). Benzodiazepine use is generally not recommended concurrently with pain medications and/or other controlled substances due to increased risks of profound sedation, respiratory depression, coma, and even . They are not to be used with any alcohol, as this combination can also be lethal. Patient was provided caution 3. Attention deficit hyperactivity disorder, combined type Adderall 30 mg twice a day - filled 08/26/24 educated on elevated B/P today and stimulate risk and refer to PCP seen 07/02/24 and overhead line worker and new B/P RX 4. Primary insomnia - sleep hygeine HX RX Ramelteon 8 mg did not help patient reported Trazodone caused tingling in feet and legs no control sleep aid related on Benzo 5. elevated B/P - seen overhead line worker and new rx educated on healthy b/p 120/80 monitor b/p at home refer to PCP, Urgent care/ER heart healthy diet and excise limit salt intake limit soda intake and caffiene increase water seen in ER 444- Lasix seen PCP 07/02/24 Educated on stimulates and increase B/P and risk tobacco user Do not smoke. Nicotine and other chemicals in cigarettes and cigars can cause lung damage. Ask your healthcare provider for information if you currently smoke and need help to quit. E-cigarettes or smokeless tobacco still contain nicotine. Talk to your healthcare provider before you use these products. education on decrease to stopping nicotine products and stop smoking hotline given 7.. Long-term drug therapy Discussion Notes refer to therapy Plan: * Treatment: 2. G eneralized anxiety disorder Refill Escitalopram Oxalate Tablet, 10 MG, 1 tablet Oral Once a day, 90 days, 90, Refills 0; R efill clonazePAM Tablet, 0.5 MG, 1 tablet, Oral, three times a day, 30 days, 90 Tablet, Refills 2.? Notes: Generalized Anxiety Disorder: Care Instructions material was published, Learning About Generalized Anxiety Disorder material was published, Learning About Anxiety Disorders material was published 3. A ttention-deficit hyperactivity disorder, combined type Refill Amphetamine-Dextroamphetamine Tablet, 30 MG, 1 tablet, Oral, Twice a day, 30 days, 60, Refills 0. Notes: Learning About Attention Deficit Hyperactivity Disorder (ADHD) in Adults material was published, Learning About Stimulant Medicines for Attention Deficit Hyperactivity Disorder (ADHD) material was published 4. E levated blood pressure reading Notes: Learning About High Blood Pressure material was published, High Blood Pressure: Care Instructions material was published 5. T obacco dependence Notes: Deciding About Using Medicines To Quit Smoking material was published, Learning About Benefits of Quitting Smoking material was published, Quitting Tobacco: Care Instructions material was published, Stopping Smokeless Tobacco Use: Care Instructions material was published * Labs: * L ab: UDT (Collection Date & Time - 08/25/2024) Value Reference Range T HC N 0 - 50 ng/ml * C ocaine N 0 - 300 ng/ml * A mphetamine P 0 - 1000 ng/ml * B uprenorphine (BUP) N 0 - 10 ng/ml * S ecobarbital (Bar) N 0 - 300 ng/ml * O xazepam (BZO) N 0 - 300 ng/ml * 2 -ethylidene-1,3-tagtjfrz-9,3-diphenylpyrrolidine (EDDP) N 0 - 300 ng/ml * M ethamphetamine (MET) N 0 - 1000 ng/ml * M ethylenedioxymethamphetamine (MDMA) N 0 - 500 ng/ml * M orphine (MOP 300/SNX9175) N 0 - 300 ng/ml * M ethadone (MTD) N 0 - 300 ng/ml * P hencyclidine (PCP) N 0 - 25 ng/ml * P ropoxyphene (PPX) N 0 - 300 ng/ml * N ortriptyline (TCA) N 0 - 1000 ng/ml * O xycodone N 0 - 300 ng/ml * Procedure Codes: 9 6127 BEHAV ASSMT W/SCORE & DOCD/STAND INSTRUMENT, 73473 DRUG TST PRSMV READ INSTRMNT ASSTD DIR OPT OBS, G8783 NORMAL BP READING DOC F/U NOT RQR, G2211 VISIT COMPLEXITY INHERENT TO ONGOING CARE RELATED TO A PATIENT'S SINGLE, SERIOUS CONDITION OR A COMPLEX CONDITION * Follow Up: 3 Months (Reason: f/u rx) * Billing Information: * Visit Code: 80772 OFFICE OUTPATIENT VISIT 25 MINUTES DETAILED HISTORY AND EXAM/MODERATE MEDICAL DECISION MAKING. * Procedure Codes: 38199 BEHAV ASSMT W/SCORE & DOCD/STAND INSTRUMENT. 29764 DRUG TST PRSMV READ INSTRMNT ASSTD DIR OPT OBS. G8783 NORMAL BP READING DOC F/U NOT RQR. G2211 VISIT COMPLEXITY INHERENT TO ONGOING CARE RELATED TO A PATIENT'S SINGLE, SERIOUS CONDITION OR A COMPLEX CONDITION. * POLISHER Sign off status: Completed true * Provider: Josette ASIF, PMHNP Date: 1 10/26/2023 Generated for Sarah alegre/Dre/Evans on: 0 10/26/2024 02:18 PM DIAL POLISHER History and Physical Notes * HPI (History of Present Illness) Category Sub-Category Detail Notes Category Not es History of Presenting Problem Pt was seen today and Urine drug screen was done SLUMS= 28 07/02/24 AIMS= 0 07/02/24 dentures Follow up Paranoia schizophrenia, LAMAR, depression, sleep and ADHD, chronic recurrent since last visit I had the flu and still not over it and I felt Latuda I am getting adjusted to to it and I was crabby I also had sinus infection before flu, and 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 he is sick a lot, mood been good and I want to decorate for [place] but been sick I have holiday spirit and been shopping, I was paranoid week half ago, and better now, but also switch meds lately I saw a heart provider and on new b/p rx and also found hitial hernia and GERD and I feel full all the time I am seeing GI provider about it, no sad, down, hopeless or helpless, no A/C/V hallucinations, no alexandre, no hypomania, I feel anxious, with things between but better now I feel like so much to do for [place] and bother me, normal things, not restless or fidgety, and sleep 90% better last week half average 8 hours now, energy good unless sick and motivation and interest good, concentration and focus good, tolerating rx and no s/e no abnormal involuntary movements, no delusions I feel I just need tostay on same rx for a while and let it work and switch b/P RX also help, no SI/HI, rx hx Vraylar, Latuda, Seroquel, Risperdal, Abilify, Zyprexa, Caplyta,Lexapro, Topamax, Trazodone, Ramelteon, Mealtonin, Zoloft, Paxil, Prozac, Wellbutrin, Xanax, Clonazepam, Adderall, Effexor, Buspar, Viibyrd, PCP prescribed my Vistaril and made legs for itching ETOH- occasional social 3 mix drinks mazin Smoking current 1/2 ppd x 32 years drugs denies labs- ER 06/28/24 seen PCP 07/02/24 denies SI/HI no plans or intent no past attempts no thoughts harm to self or others, no FH Notes:picks legs with anxiety hx delusions and hallucinations and paranoia Psychosis H/O Reported by patient.Patient endorses: no evidence of psychosis; no auditory hallucinations; no visual hallucinations; no preoccupations; no delusions; no paranoia; no avolition; no apathy; no cognitive changes; no disorganized behavior; hx A/V hallucinations and delusions, paranoia see and hear GOD Notes:hx tv and radio talks to me and noise and short and no command hallucinations HX thinks Dr. Day is tracking her since his name popped up on portal and chemicals and asked staff about lady talking and then will tell her to be quite and no one there, UDS today and paranoia asked staff about it and said the chair had chemical on it and making skin peel Depression screening PHQ-9 Little interest or pleasure in doing things: Several days Feeling down, depressed, or hopeless: Se veral days Trouble falling or staying asleep, or sl eeping too much: Several days Feeling tired or having little energy: N ot at all Poor appetite or overeating: Not at all Feeling bad about yourself o r that you are a failure, or have let yourself or your family down: Not at all Trouble concentrating on thi ngs, such as reading the newspaper or watching television: Not at all Moving or speaking so slowly that other people could have noticed; or the opposite, being so fidgety or restless that you have been moving around a lot more than usual: Not at all Thoughts that you would be b marcella off or of hurting yourself in some way: Not at all Total Score: 3 Interpretation: Minimal Depression Intervention Depression Screening Findings: P ositve Follow-Up for Depression: [facility] treatment assessment, Patient follow-up to return when and if necessary Suicide Risk Assessment Performed: Additional Evaluation for De pression: Psychiatric interview and evaluation Name of the standardized too l used for adult depression screening:: Patient Health Questionnaire (PHQ-9) Depression Screening LAMAR-7 (2018 Edition) Feelin g nervous, anxious, or on edge: Several days Not being able to stop or control worryi ng: Not at all Worrying too much about different things : Several days Trouble relaxing: Not at all Being so restless that it is hard to sit still: Not at all Becoming easily annoyed or irritable: Se veral days Feeling afraid as if something awful gricel ht happen: Not at all Total LAMAR-7 Score: 3 Interpretation of Total: (0 to 4) No Anx iety Dunlo-Suicide Severity Rating Scale Suicide Risk (CSRS-screener) in the past one month Have you wished you were or wished you could go to sleep and not wake up?: No in the past one month Have y ou actually had any thoughts of killing yourself?: No Examination Category Sub-Category Detail Notes Category Not es Neurology Cognition Assessment Tools Used Total score SLUMS: 28 Psychiatry Appearance: well-groomed, we ll-nourished, appears stated age, slender build Attitude: cooperative Psychomotor activity: within normal rang e Abnormal body movements: none Attention: good Degree of awareness of surroundings: wit hin normal limits Orientation: awake, alert and kb ented x 3 Affect / mood: appropriate, full ra nge Speech / language: appropriate pitch/mo dulation, clear and coherent, proper grammar used Insight: good Judgement: good Thought process: intact Thought content: appropriate Perceptual disorders: hx delusions Aggression: low Anger control: good Suicidal ideation: none Homicidal ideation: none Intellectual functioning: average Impulse control: good Sexual impulse control: good Memory status: no impairment noted Delusions: no Hallucinations: no Comprehension - Intellectual function: a verage
--- OUTSIDE RECORDS SUMMARY | 2024-10-26 14:18 | XMS_ITS ---
Author Organization [facility] Address [facility] [address] [address] Care Team Providers Care Vessel Slag Worker Name Role Phone Zhen Rome MD Primary Care Provider UnavailCee Wallace Unavailable [phone] REASON FOR VISIT Refills Medications Medication SIG (Take, Route, Frequency, Duration) Notes Start Date End Date Status Amphetamine-Dextroamphetam ine 30 MG 1 tablet Oral Twice a day for 30 days 10/20/2024 Active Social History Sex Assigned At : Social History Observation Description Sex Assigned At Female Encounters Encounter [facility] [place] [id number] [address] [address] 10/20/2024 Cee Asif Attention-deficit hyperactivity disorder, combined type F90.2 Assessments Encounter Date Diagnosis (ICD Code) Assessment Notes Treatment Notes Treatment Clinical Notes Section Notes 10/20/2024 Attention-deficit hyperactivity disorder, combined type (ICD-10 - F90.2) Plan Of Treatment Medication Medication Name Sig Start Date Stop Date Notes Amphetamine-Dextroamphetamin e 30 MG 1 tablet Oral Twice a day for 30 days 10/20/2024 Next Appt Details Provider Name:Cee Asif , 11/19/2024 03:45:00 PM, [address] [facility] [address], [facility] [address], [address], Progress Notes * CRISTINA MELCHORDOB:1965 (59 yo F)Acc No.[id number]:10/20/2024 Patient: Cristina CRISTINA CLEMENTE :1965 A ge:59 Y S ex:Female Address:[address] [place] [address] [place], [place], [address] * Refills Refill Amphetamine-Dextroamphetamine Tablet, 30 MG, Oral, 60, 1 tablet, Twice a day, 30 days, Refills=0 * * Date:
--- OUTSIDE RECORDS SUMMARY | 2024-10-26 14:19 | XMS_ITS | Encounter Summary ---
Author Organization [facility] Address [address] [place] [address] Care Team Providers Care Supervisor Mails Name Role Phone Zhen Rome MD Primary Care Provider [phone] Encounter Details Date Type Department Care Team (Latest Contact Info) Description 07/22/2018 Abstract [facility] , Dilip Branch MD Social History Tobacco Use Types Packs/Day Years Used Date Smoking Tobacco: Never Assessed Comments Unknown Sex and Gender Information Value Date Recorded Sex Assigned at Not on file Legal Sex Female 9:40 PM CDT Gender Identity Not on file Sexual Orientation Not on file documented as of this encounter Plan of Treatment Not on file documented as of this encounter Visit Diagnoses Not on filedocumented in this encounter Care Teams Supervisor Mails Relationship Specialty Start Date End Date Zhen Rome MD [address] [address] PCP - General INTERNAL MEDICINE 06/20/22 documented as of this encounter
--- OUTSIDE RECORDS SUMMARY | 2024-10-26 14:19 | XMS_ITS | Data Portability ---
Author Organization [facility] Address [address] [place] [address] Care Team Providers Care Axminster Rug Setter Name Role Phone DANNY STAUFFER Primary Care Provider [phone] BERNARD SALAZAR Psychiatrist Assessment Encounter Date Assessment Date Assessment LastModified by Organization Details LastModified Time 10/24/2018 10/24/2018 She is following up from ER. From ED notes, they were working her up for lead toxicity. From the notes they collected lab to test technician level. However, I called to get result and they have nothing on file. Upon review of her work-up in ED she had some abnormal labs. I will further work her to investigate further. [email or web address] Not available 10/24/2018 19:06:30 01/13/2024 01/13/2024 Hydroxyzine. 25 will obtain old recordsmg 3 times daily as needed for itching Septra DS 1 p.o. twice daily for 1 week hypertension will continue with her verapamil psych medicines will continue as well as her headache prophylaxis medicines. Follow-up with me in 4 months. Obtain old records [email or web address] Not available 01/18/2024 16:01:31 07/02/2024 07/02/2024 we will give her her sumatriptan she has done very well with that we will obtain an echocardiogram have Cardiology see her give her Lasix 40 mg daily losartan 50 mg daily her blood pressure is not controlled Ceftin 500 b.i.d. x3 weeks she will see me back in 2 weeks I have reviewed the emergency room record. [email or web address] Not available 07/21/2024 22:58:22 Plan of Treatment Reminders Order Date Submit Date Provider Last Modified By Organization Details Last Modified Time Details Appointments ANY 15 2024 01:15P Myke Rome MD Not available Not available Not available Lab T3 resin uptake w/ ratio (thbr), serum 2018 019 [facility], [address], [address], [place], [address], 10/25/2018 16:41:27 TSH + free T4, serum 2018 019 [facility], [address], [address], [place], [address], 10/25/2018 16:41:27 alkalin e phospha tase isoenzy mes, serum or plasma 2018 019 [facility], [address], [address], [place], [address], 10/25/2018 16:41:27 PTH (parath yroid hormone ), intact + calcium , serum or plasma 2018 019 [facility], [address], [address], [place], [address], 10/25/2018 16:41:26 lead, blood 2018 019 [facility], [address], [address], [place], [address], 10/25/2018 16:41:26 culture , aerobic + anaerob ic 2018 019 [facility], [address], [address], [place], [address], 10/25/2018 16:41:28 culture , wound 2018 019 [facility], [address] [facility] [address], [address], [place], [address], 01/05/2019 14:09:05 lipid panel, serum 2018 019 [facility], [address], [address], [place], [address], 05/16/2019 03:03:20 CMP, serum or plasma 2018 019 [facility], [address], [address], [place], [address], 05/16/2019 03:03:19 HIV 1+2 Ab + HIV1 p24 Ag, quantit ative immunoa ssay, serum 2018 019 [facility], [address], [address], [place], [address], 05/16/2019 03:03:22 CBC w/ auto diff 2023 024 [email or web address] [facility], [address], [place], [address], 01/13/2024 16:07:12 CMP, serum or plasma 2023 024 [facility], [address], [place], [address], 01/13/2024 16:07:12 lipid panel, serum 2023 024 [email or web address] [facility], [address], [place], [address], 01/13/2024 16:07:12 Referral colonos copy referra l 2018 019 BIENVENIDO Doshi MD, [address] [place], [address], 04/29/2019 12:55:46 ENT surgery referra l 2023 024 preethi Holbrook, [address] [facility], [place], [address], 10/16/2024 14:39:04 cardiol ogist referra l 2023 024 [facility], [address], [address], [place], [address], 08/10/2024 18:06:43 Procedures None recorde d. Surgeries None recorde d. Imaging MAMMO, screeni ng, bilater al 2018 [email or web address] [place] [address] Imaging, [address], [place], [address], 04/23/2019 16:39:50 MAMMO, screeni ng, digital , bilater al 2023 024 [email or web address] [facility], [address], [place], [address], 10/23/2024 09:21:29 US, echocar diogram 2023 024 [facility], [address], [address], [place], [address], 08/10/2024 17:01:56 Medication Orders doxycyc line hyclate 100 mg tablet 2018 019 [facility], [address] [place] [address], [place], [id number], 04/23/2019 16:18:01 ceftria xone 1 gram solutio n for injecti on 2018 019 jed [facility]00926, [address], [place], [id number], 04/23/2019 16:09:58 Bactrim DS 800 mg-160 mg tablet 2018 019 [employer] [facility] #28309, [address], [place], [id number], 04/23/2019 16:20:18 mupiroc in 2 % topical ointmen t 2018 019 [email or web address] [facility] #93986, [address], [place], [id number], 12/29/2018 19:06:48 Hibicle ns 4 % topical liquid 2018 019 [email or web address] [facility] #59338, [address], [place], [id number], 04/23/2019 16:18:29 trazodo ne 50 mg tablet 2018 019 [email or web address] [facility] #14960, [address], [place], [id number], 01/13/2024 14:39:40 potassi um chlorid e ER 20 mEq tablet, extende d release 2018 019 [facility] #74266, [address], [place], [id number], 04/23/2019 16:37:59 hydroxy zine HCl 25 mg tablet 2023 024 [email or web address] [facility] #01191, [address], [place], [id number], 01/13/2024 16:07:12 furosem yesica 20 mg tablet 2023 024 AZAEL [facility] #97429, [address], [place], [id number], 06/29/2024 16:09:47 Bactrim DS 800 mg-160 mg tablet 2023 024 [facility] #16204, [address], [place], [id number], 01/13/2024 16:07:12 Lasix 40 mg tablet 2023 024 [email or web address] [facility] #23167, [address], [place], [id number], 07/02/2024 12:57:24 losarta n 50 mg tablet 2023 024 [email or web address] [facility] #59916, [address], [place], [id number], 08/24/2024 14:57:05 sumatri ptan 100 mg tablet 2023 024 [email or web address] [facility] #19989, [address], [place], [id number], 07/02/2024 12:57:24 cefurox halima axetil 500 mg tablet 2023 024 AZ[facility] #06242, [address], [place], [id number], 08/24/2024 14:57:27 Patient TargetsNo targets recorded. Patient Instructions Encounter Date Encounter Id Patient Instructions Last Modified By Organization Details Last Modified Time 12/29/2018 [id number] hibiclens shower education [email or web address] Not available 12/29/2018 19:06:48 Reason for Referral Colonoscopy Referral for Scr eening for malignant neoplasm of colon Referring Physician: Sarah Metcalf, Family Medicine, Encounter Date: 04/23/2019 ENT Surgery Referral for Spl it ear lobe Referring Physician: Zhen Rome, Internal Medicine, Encounter Date: 01/13/2024 Faculty Head Referral for Es sential hypertension Referring Physician: Zhen Rome, Internal Medicine, Encounter Date: 07/02/2024 Results Created Date Observation Date Name Description Value Unit Range Abnormal Flag Note LastModifiedBy Organization Detail LastModifiedTime 10/24/19 19 10/30/2018 PTH (para thyro id hormo ne), intac t + calci um, serum or plasm a parathyroid hormone, intact TNP * Test not perfo rmed. * * Dupli ja test. * Not Available [address], [address], 10/30/2018 07:50:58 10/24/1910/30/2018 PTH (para thyro id hormo ne), intac t + calci um, serum or plasm a calcium TNP * Test not perfo rmed. * * Dupli ja test. * Not Available [facility] [address], [address], 10/30/2018 07:50:58 10/24/1910/30/2018 lead, blood lead(B) collection sample VENOUS Not Available [address], [address], 10/30/2018 07:50:59 10/24/1910/30/2018 lead, blood lead, blood TNP TEST( S) NOT PERFO RMED: LEAD, BLOOD * Test not perfo rmed. * * Dupli ja test. * Not Available [facility] [address], [address], 10/30/2018 07:50:59 10/24/1910/30/2018 alkal ine phosp hatas e isoen zymes , serum or plasm a alkaline phosphatase TNP * Test not perfo rmed. * * Dupli ja test. * Not Available [address], [address], 10/30/2018 07:51:00 10/24/1910/30/2018 alkal ine phosp hatas e isoen zymes , serum or plasm a intestinal isoenzymes TNP * Test not perfo rmed. * * Dupli ja test. * Not Available [facility] [address], [address], 10/30/2018 07:51:00 10/24/1910/30/2018 TSH + free T4, serum TSH TNP * Test not perfo rmed. * * Dupli ja test. * Not Available [facility] [address], [address], 10/30/2018 07:51:01 10/24/1910/30/2018 TSH + free T4, serum T4, free TNP * Test not perfo rmed. * * Dupli ja test. * Not Available [address] [address] [place], [address], 10/30/2018 07:51:01 10/24/1910/30/2018 T3 resin uptak e w/ ratio (thbr ), serum T3 uptake TNP * Test not perfo rmed. * * Dupli ja test. * Not Available [address] , [place], [address], 10/30/2018 07:51:02 10/24/1910/30/2018 cultu re, aerob ic + anaer obic culture, anaerobic bacteria w/gram stain SEE NOTE CULTU RE, ANAER OBIC BACTE BEBE W/GRA M STAIN MICRO NUMBE R: [id number] TEST STATU S: FINAL SPECI MEN SOURC E: SKIN LESIO N SPECI MEN QUALI TY: ADEQU ATE GRAM STAIN : No white blood cells seen Rare epith elial cells No organ isms seen RESUL T: No anaer obes isola chuck. Not Available [address] , [place], [address], 10/30/2018 07:51:03 10/24/1910/30/2018 cultu re, aerob ic + anaer obic culture, aerobic bacteria SEE NOTE CULTU RE, AEROB IC BACTE BEBE MICRO NUMBE R: [id number] TEST STATU S: FINAL SPECI MEN SOURC E: SKIN LESIO N SPECI MEN QUALI TY: ADEQU ATE RESUL T: No Growt h Not Available [address] [address] [place], [address], 10/30/2018 07:51:03 10/24/1910/29/2018 PTH (para thyro id hormo ne), intac t + calci um, serum or plasm a parathyroid hormone, intact 41 pg/mL 14-64 normal Inter preti ve Guide Intac t PTH Calci um ----- ----- ----- --- ----- ----- ----- -- Candy l Parat hyroi d Candy l Candy l Hypop karina yroid ism Low or Low Candy l Low Hyper parat hyroi dism Prima ry Candy l or High High Secon paradise High Candy l or Low Terti marysol High High Non-P karina yroid Hyper calce ian Low or Low Candy l High Not Available [employer] [address] [address] [place], [address], 10/29/2018 23:28:12 10/24/1910/29/2018 PTH (para thyro id hormo ne), intac t + calci um, serum or plasm a calcium 9.4 mg/dL 8.6-10 .4 normal Not Available [facility] [address] [address] [place], [address], 10/29/2018 23:28:12 10/24/1910/29/2018 PTH (para thyro id hormo ne), intac t + calci um, serum or plasm a copy(ies) sent to: [facility] [address] [place] [address] Not Available [employer] [address] [address] [place], [address], 10/29/2018 23:28:12 10/24/1910/29/2018 lead, blood lead, blood 1 mcg/d L <5 normal This test was devel oped and its marcela tical perfo rmanc e yakov cteri stics have been deter mined by [facility]. It has not been clear ed or appro gume by the FDA. This assay has been valid ated pursu ant to the CLIA regul ation s and is used for clini moncho purpo ses. Not Available [address], [address], 10/29/2018 23:28:12 10/24/19 19 10/29/2018 lead, blood lead(B) collection sample VENOUS Not Available [address], [address], 10/29/2018 23:28:12 10/24/19 19 10/29/2018 lead, blood copy(ies) sent to: [facility] [address] [place] [address] Not Available [address], [address], 10/29/2018 23:28:12 10/24/1910/29/2018 alkal ine phosp hatas e isoen zymes , serum or plasm a alkaline phosphatase 112 U/L 33-130 Not Available [address], [address], 10/29/2018 23:28:13 10/24/19 19 10/29/2018 alkal ine phosp hatas e isoen zymes , serum or plasm a intestinal isoenzymes 5 % 1-24 Not Available [address], [address], 10/29/2018 23:28:13 10/24/19 19 10/29/2018 alkal ine phosp hatas e isoen zymes , serum or plasm a bone isoenzymes 33 % 28-66 Not Available [address], [address], 10/29/2018 23:28:13 10/24/1910/29/2018 alkal ine phosp hatas e isoen zymes , serum or plasm a liver isoenzymes 62 % 25-69 Incre ased intes tinal alkal ine phosp hatas e can be seen in blood group O and B secre tors and after fatty meals . Not Available [facility] [address], [address], 10/29/2018 23:28:13 10/24/19 19 10/29/2018 alkal ine phosp hatas e isoen zymes , serum or plasm a placental isoenzymes 0 % 0 Not Available [address], [address], 10/29/2018 23:28:13 10/24/19 19 10/29/2018 alkal ine phosp hatas e isoen zymes , serum or plasm a copy(ies) sent to: [facility] [address] [place] [address] Not Available [address], [address], 10/29/2018 23:28:13 10/24/1910/29/2018 TSH + free T4, serum TSH 0.57 mIU/L normal Refer ence Range > or = 20 Years 0.40- 4.50 Pregn yue Range s First trime ster 0.26- 2.66 Secon d trime ster 0.55- 2.73 Third trime ster 0.43- 2.91 Not Available [address], [address], 10/29/2018 23:28:13 10/24/1910/29/2018 TSH + free T4, serum T4, free 0.8 NG/dL 0.8-1. 8 normal Not Available [address], [address], 10/29/2018 23:28:13 10/24/19 19 10/29/2018 TSH + free T4, serum copy(ies) sent to: [facility] [address] [place] [address] Not Available [address], [address], 10/29/2018 23:28:13 10/24/19 19 10/29/2018 T3 resin uptak e w/ ratio (thbr ), serum T3 uptake 31 % 22-35 normal Not Available [facility] [address], [place], [address], 10/29/2018 23:28:13 10/24/19 19 10/29/2018 T3 resin uptak e w/ ratio (thbr ), serum copy(ies) sent to: [facility] [address] [place] [address] Not Available [facility] [address], [place], [address], 10/29/2018 23:28:13 12/31/19 19 12/31/2018 cultu re, wound gram stain result Final report Not Available [facility] ([facility]) [address] [place], [address], 01/05/2019 14:09:04 12/31/19 19 12/31/2018 cultu re, wound result 1 Commen t No white blood cells seen. Not Available [facility] ([facility]) [address] [place], [address], 01/05/2019 14:09:04 12/31/19 19 12/31/2018 cultu re, wound result 2 No organi sms seen Not Available [facility] ([facility]) [address] [place], [address], 01/05/2019 14:09:04 12/31/19 19 01/02/2019 cultu re, wound aerobic culture Final report Not Available [facility] ([facility]) [address] [place], [address], 01/05/2019 14:09:04 12/31/19 19 01/02/2019 cultu re, wound result 1 Commen t No growt h in 36 - 48 hours . Not Available [facility] ([facility]) [address] [place], [address], 01/05/2019 14:09:04 12/31/19 19 01/05/2019 cultu re, wound anaerobic culture Final report Not Available [facility] ([facility]) [address], [place], [address], 01/05/2019 14:09:04 12/31/19 19 01/05/2019 cultu re, wound result 1 Commen t No anaer obic growt h in 72 hours . Not Available [facility] ([facility]) [address], [place], [address], 01/05/2019 14:09:04 08/10/20 24 08/10/2024 , echoc ardio gram No observ ation record ed. [facility] [address], [place], [address], 08/11/2024 22:32:42 10/08/19 25 10/08/2024 XR, abdom en No observ ation record ed. [facility] [address], [place], [address], 10/12/2024 09:42:32 Result Notes None recorded. Problems Name Problem SNOMED Code Status Onset Date Resolution Date Notes Provider Name and Address Organization Details Recorded Time Eruption 525349298 Active 2023 LAYLA [place], [place] - [facility] 4 15:19:05 [facility] hyperten nba 62946066 Active 2023 [place] [facility] 4 15:19:06 Hyperlip idemia 10830494 Active 2023 L[place] [facility] 4 15:19:08 Follicul itis 19323858 Active 2023 L[place] [facility] 4 15:19:09 Headache 47308034 Active 2023 L[place] [facility] 4 12:07:47 Edema of lower extremit y 428626404 Active 2023 [place] [facility] 4 12:07:49 Acute sinusiti s 46396794 Active 2023 Zahida Abrams [place] null, [place] [facility] 4 12:07:51 Essentia l hyperten nba 36978187 Completed 201512/19/2016 Zahida Abrams [place] null, [place] [facility] 4 15:19:06 Tobacco dependen ce syndrome 05850343 Completed 201408/12/2015 Location : None;Sev erity: Moderate ;Progres s: Stable;A dded By: Theron Stauffer;Add to Current Problems : YES Not Available [facility] 7 00:21:17 Slow transit constipa tion 31057222 Active 2014 Location : None;Sev erity: Moderate ;Progres s: Stable;A dded By: Theron Stauffer;Add to Current Problems : YES Not Available [facility] 7 00:21:17 Benign essentia l hyperten nba 1675886 Active 2014 Location : None;Sev erity: Moderate ;Progres s: Stable;A dded By: Theron Stauffer;Add to Current Problems : YES Not Available [facility] 7 00:21:17 Neoplasm of uncertai n behavior of skin 63467070 Completed 201409/20/2015 Location : None;Sev erity: Moderate ;Progres s: Stable;A dded By: Theron Stauffer;Add to Current Problems : YES Not Available [facility] 7 00:21:17 Pain in limb 56560286 Completed 201412/19/2016 Location : None;Sev erity: Moderate ;Progres s: Stable;A dded By: Theron Stauffer;Add to Current Problems : YES CESAR Montejo Attn: Accounting ,[address] [place], [address] , - [facility] 7 12:59:46 Hypokale ian 90440102 Completed 201410/15/2015 Location : None;Sev erity: Moderate ;Progres s: Stable;A dded By: Theron Stauffer;Add to Current Problems : YES Not Available [facility] hospital 7 00:21:17 Benign 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 Completed 201412/19/2016 Location : None;Sev erity: Moderate ;Progres s: Stable;A dded By: Vanessa Spencer;Add to Current Problems : YES CESAR Montejo Attn: Accounting ,[address] [place], [address] , [facility] 7 12:59:33 Contact dermatit is [id number] Completed 201409/01/2015 Location : None;Sev erity: Moderate ;Progres s: Stable;A dded By: Bushra Mayes;Add to Current Problems : YES Not Available [facility] hospital 7 00:21:17 Generali zed anxiety disorder 41229523 Active 2014 Location : None;Sev erity: Moderate ;Progres s: Stable;A dded By: Bushra Mayes;Add to Current Problems : YES Not Available [facility] 7 00:21:17 Removal of suture Completed 201412/19/2016 Location : None;Sev erity: Moderate ;Progres s: Stable;A dded By: Chary Manning; Add to Current Problems : NO CESAR Montejo Attn: Accounting ,[address] [place], [address] , [facility] 7 12:59:38 Localize d infectio n of skin AND/OR subcutan eous tissue 163479790 Completed 201407/14/2015 Location : None;Sev erity: Moderate ;Progres s: Stable;A dded By: Chary Manning; Add to Current Problems : YES Not Available [facility] hospital 7 00:21:18 Problem Notes None recorded. Procedures Surgical History Date Name Laterality Status Provider Name and Address Organization Details Recorded Time Arthroscopic Surgery completed Key Rousseau MA [facility] 12/20/2016 09:03:49 Tonsillectomy completed Key Rousseau MA [facility] 12/20/2016 09:03:59 Tubal Ligation completed LAYLA Venegas [facility] 12/20/2016 09:04:26 Caesarean Section completed Kristi Bruno [facility] 01/06/2018 18:42:15 Dilation and Curettage completed LAYLA Venegas [facility] 12/20/2016 09:04:43 Heart Surgery completed Kristi Bruno [facility] 01/06/2018 18:42:08 Imaging Results Imaging Date Name Status LastModified by Organization Details LastModified Time 08/10/2024 US, echocardiogram completed [facility] [address], [place], [address], 08/11/2024 22:32:42 10/08/2024 XR, abdomen completed [facility] [address], [place], [address], 10/12/2024 09:42:32 Procedure Notes None recorded. Medical Equipment None Reported. Allergies Allergen ID Allergen Name Allergen Category Reaction Reaction Severity Criticality Documentation Date Start Date Code Code System Note Provider Name and Address Organization Details Recorded Time 120111 trazodone medicatio n other Not available Not available 01/13/2024 64953 RxNorm bilat eral leg tingl ing Not Available Not Available Not Available 175367 Benadryl medicatio n other Not available Not available 01/13/2024 77765 7 RxNorm bilat eral leg tingl ing Not Available Not Available Not Available 344730 Topamax medicatio n other moderate high 10/26/2024 68487 3 RxNorm numbn ess in legs Not Available Not Available Not Available Medications Name Sig Start Date Stop Date Status Note LastModified by Organization Details LastModified Time Prescript ion - Prior Authoriza tion Request 05/08 completed Not Available Not Available Not Available verapamil ER (SR) 120 mg tablet,ex tended release TAKE 1 TABLET BY MOUTH NIGHTLY active has been out of this rx Not Available Not Available Not Available losartan 50 mg tablet TAKE 1 TABLET BY MOUTH EVERY DAY 08/24 completed Not Available Not Available Not Available furosemid e 40 mg tablet TAKE 1 TABLET BY MOUTH EVERY DAY active Not Available Not Available No t Available metolazon e 2.5 mg tablet TAKE 1 TABLET BY MOUTH DAILY 04/23 completed Not Available Not Available Not Available prednison e 10 mg tablet active Not Available Not Available Not Available citalopra m 40 mg tablet Take 1 tablet(s ) by mouth daily 12/19 completed RxNorm: 692203;A llow Substitu tion: True Not Available Not Available Not Available trazodone 50 mg tablet TAKE UP TO 3 TABLETS AT BEDTIME PO DAILY 01/12 completed allergy- patient reports having tingling sensatio n of legs when taking. Not Available Not Available Not Available ibuprofen 800 mg tablet TAKE 1 TABLET BY MOUTH THREE TIMES DAILY 08/25 completed Not Available Not Available Not Available Lidocaine Viscous 2 % mucosal solution APPLY TO AFFECTED MUCOSAL AREA THREE TIMES DAILY active Not Available Not Available No t Available citalopra m 10 mg tablet Take 1 tablet(s ) by mouth daily 08/16 completed RxNorm: 849821;A llow Substitu tion: True Not Available Not Available Not Available sumatript an 100 mg tablet TAKE 1 TABLET BY MOUTH AT ONSET OF HEADACHE . MAY REPEAT IN 2 HOURS NEEDED active Not Available Not Available No t Available hydrocodo ne 5 mg-acetam inophen 325 mg tablet Take 1 tablet every 12 hours by oral route as needed. 04/23 completed Not Available Not Available Not Available prednison e 20 mg tablet take 1/2 tablet daily for 30 days and then make a f/u appt, can not continue to take this 01/22 completed Not Available Not Available Not Available clonazepa m 0.5 mg tablet TAKE 1 TABLET BY MOUTH THREE TIMES A DAY active Not Available Not Available No t Available olanzapin e 5 mg tablet 12/19 completed Not Available Not Available Not Available metolazon e 5 mg tablet Take 1 tablet every day by oral route. 04/23 completed Not Available Not Available Not Available sumatript an 50 mg tablet TAKE 1 TABLET BY MOUTH AT ONSET OF HEADACHE . MAY REPEAT IN 2 HOURS NEEDED. MAX OF 4 TABLETS IN 24 HOURS 05/27 completed pt reports she is no longer taking this medicati on Not Available Not Available Not Available olanzapin e 10 mg tablet Take 1 tablet every day by oral route at bedtime for 30 days. active Not Available Not Available No t Available acetamino phen 300 mg-codein e 30 mg tablet 10/24 completed Not Available Not Available Not Available sulfameth oxazole 800 mg-trimet hoprim 160 mg tablet TAKE 1 TABLET BY MOUTH TWICE DAILY FOR 10 DAYS active Not Available Not Available No t Available omeprazol e 40 mg capsule,d elayed release TAKE 1 CAPSULE BY MOUTH DAILY active Not Available Not Available No t Available doxycycli ne monohydra te 100 mg tablet TAKE 1 TABLET BY MOUTH TWICE DAILY FOR SINUS INFECTIO N 08/24 completed Not Available Not Available Not Available tramadol 50 mg tablet Take 1 or 2 po Tid prn 04/23 completed Not Available Not Available Not Available quetiapin e 100 mg tablet TAKE 1 TABLET BY MOUTH EVERY DAY AT BEDTIME FOR 30 DAYS active Not Available Not Available No t Available triamcino lone acetonide 0.1 % topical cream APPLY TOPICALL Y TO THE AFFECTED AREA DAILY active Not Available Not Available No t Available dexametha sone 0.5 mg/5 mL oral solution 01/12 completed pt reports she is no longer taking this medicati on Not Available Not Available Not Available Kenalog 40 mg/mL suspensio n for injection Take 60 mg by injectio n route. 01/22 completed Given by Kristi Henry i, [place] Not Available Not Available Not Available dextroamp hetamine- amphetami ne 30 mg tablet TAKE 1 TABLET BY MOUTH TWICE A DAY active Not Available Not Available No t Available Bactroban 2 % topical cream Apply to the affected area bid until healed 07/13 completed RxNorm: 517862;A llow Substitu tion: True Not Available Not Available Not Available ceftriaxo ne 1 gram solution for injection Take 1 g every day by injectio n route for 1 day. 04/23 completed ILIANA Mckeon Not Available Not Available Not Available citalopra m 20 mg tablet 1 po daily 09/21 completed RxNorm: 402066;A llow Substitu tion: True Not Available Not Available Not Available ziprasido ne 20 mg capsule 04/23 completed Not Available Not Available Not Available potassium chloride ER 20 mEq tablet,ex tended release(p art/cryst ) TAKE 2 TABLETS TWICE A DAY 10/24 completed Not Available Not Available Not Available lorazepam 2 mg tablet 10/24 completed Not Available Not Available Not Available amlodipin e 10 mg tablet TAKE 1 TABLET BY MOUTH DAILY active Not Available Not Available No t Available cephalexi n 500 mg capsule 01/12 completed pt reports she is no longer taking this medicati on Not Available Not Available Not Available pantopraz ole 40 mg tablet,de layed release Take 1 tablet every day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
--- OUTSIDE RECORDS SUMMARY | 2024-10-26 14:19 | XMS_ITS | Clinical Summary ---
Author Organization [facility] [place] Address [address] [address] Phone Care Team Providers Care Cake Decorator Name Role Phone Zhen Rome MD Primary Care Provider [phone] Allergies No known active allergies Medications dextroamphetami ne-amphetamine 20 mg tabletIndicatio ns:Mastalgia,Di ffuse cystic mastopathy Take 15 mg by mouth daily. Active PENELOPE PRIM/LINOLEIC/G AMOLENIC AC (PRIMROSE OIL ORAL)Indication s:Mastalgia,Dif fuse cystic mastopathy Take by mouth. Acti ve clonazePAM 0.5 mg tablet Take 0.5 mg by mouth 3 times daily as needed for Anxiety. Active cyanocobalamin 1,000 mcg Tablet Take 2,000 mcg by mouth daily. Active furosemide 20 mg tablet Take 20 mg by mouth 1 time daily as needed for Other (See Comment) (swelling). Active potassium chloride (KLOR-CON) 20 mEq Extended Release tablet Take 20 mEq by mouth daily. Active topiramate (TOPAMAX) 100 mg tablet Take 100 mg by mouth 2 times daily. Active verapamiL 120 mg tablet Take 120 mg by mouth daily at bedtime. Active cetirizine (ZyrTEC) 5 mg tablet Take 1 Tablet (5 mg) by mouth daily. 1 3 Active fluticasone propionate (FLONASE) 50 mcg/spray [place], Suspension nasal inhaler Administer 2 Sprays in each nostril daily. 16 Gram 3 Active SUMAtriptan (IMITREX) 50 mg tablet Take 1 Tablet (50 mg) by mouth every 12 hours as needed for Migraine. may repeat in 2 hours; max dose 200mg in 24 hours 9 Tablet 3 Active Active Problems Problem Noted Date Diagnosed Date Paresthesia 12/14/2022 Gait instability 12/14/2022 LUIS (acute kidney injury) 12/14/2022 Atypical chest pain 12/14/2022 Bipolar disorder, unspecified 12/14/2022 Migraines 12/14/2022 Diffuse cystic mastopathy 02/16/2011 Depression Family History Medical History Relation Name Comments Other Father diabetes Cancer Maternal Aunt Heart Disease Mother Breast Cancer Neg Hx Ovarian Cancer Neg Hx Relation Name Status Comments Father Maternal Aunt Mother Social History Tobacco Use Types Packs/Day Years Used Date Smoking Tobacco: Every Day Cigarettes Smokeless Tobacco: Never Tobacco Cessation:Ready to Q uit: Not Asked; Counseling Given: Not Answered Alcohol Use Standard Drinks/Week Comments Yes 0 (1 standard drink = 0.6 oz pur e alcohol) rare Feeling Safe Answer Date Recorded Are you in a relationship wi th someone who hurts you emotionally and/or physically? No 12/13/2022 Comments No Sex and Gender Information Value Date Recorded Sex Assigned at Not on file Legal Sex Female 6:02 AM [employer] Gender Identity Not on file Sexual Orientation Not on file Occupation Industry Job Start Date Job End Date Not on file Not on file Not on file Not on file Last Filed Vital Signs Vital Sign Reading Time Taken Comments Blood Pressure 142/89 12/15/2022 12:57 PM CDT Pulse 80 12/15/2022 12:57 PM CDT Temperature 36.4 C (97.6 F) 12/15/2022 12:57 PM CDT Respiratory Rate 15 12/15/2022 12:57 PM CDT Oxygen Saturation 98% 12/15/2022 12:57 PM CDT Inhaled Oxygen Concentration - - Weight 60.8 kg (134 lb) 12/13/2022 1:13 PM CDT Height 165.1 cm (5' 5 ) 12/13/2022 1:13 PM CDT Body Mass Index 22.3 12/13/2022 1:13 PM CDT Plan of Treatment Health Maintenance Due Date Last Done Comments PNEUMOCOCCAL VACCINE 0-64 YEARS (1 of 2 - PCV) 969 CERVICAL CANCER SCREENING 1993 COLORECTAL SCREENING 2008 Colorectal Cancer Screening 2008 FIT-DNA Q 3 years 2008 FIT/FOBT Q 1 year 2008 Flex Sig/CT Colonography Q 5 years 2008 BREAST CANCER SCREENING 02/17/2012 02/16/2011 ZOSTER VACCINE (1 of 2) 2013 INFLUENZA VACCINE (#1) 2024 DTAP/TDAP/TD VACCINES (2 - Td or Tdap) 04/23/2029 RSV VACCINE (60+ or ) (1 - 1-dose 75+ series) 2038 Procedures Procedure Name Priority Date/Time Associated Diagnosis Comments MAMMO DIAGNOSTIC BILATERAL W OR WO CAD Routine 02/16/2011 12:33 PM CDT Mastalgia Diffuse cystic mastopathy from Last 3 Months or Most Recently Relevant to Health Maintenance Results * MAMMO DIGITAL DIAG BILAT (02/16/2011 12:33 PM CDT) Anatomical Region Laterality Modality Breast Bilateral Mammography Impressions 02/19/2011 1:19 PM CDT : Bilateral breast cysts are identified. Annual mammography is recommended Narrative 02/19/2011 1:19 PM CDT BILATERAL FULL FIELD DIGITAL DIAGNOSTIC MAMMOGRAM WITH COMPUTER-AIDED DETECTION BILATERAL BREAST ULTRASOUND. DATE OF EXAM: 02/16/11 History: Bilateral breast lumpiness. Technique: Bilateral full field digital diagnostic mammograms were obtained. CAD was utilized. No prior studies are available for comparison at this institution. BREAST COMPOSITION: Extremely dense, which lowers the sensitivity of mammography. Findings: No definite dominant masses are identified. Scattered calcifications are identified bilaterally. CAD was utilized. Bilateral breast ultrasound was performed. This demonstrates numerous bilateral cysts. The cyst at 10:00 position of right breast is the largest cyst in the right breast and measures 1.2 cm in size. A cyst in the left breast at 2:00 position measures a maximum of 2.1 cm in dimension. Patient has requested bilateral breast ultrasound guided cyst aspiration. OVERALL ASSESSMENT: BIRADS category 2 - Benign findings Procedure Note Maria Del Rosario Schaefer - 02/19/2011 BILATERAL FULL FIELD DIGITAL DIAGNOSTIC MAMMOGRAM WITH COMPUTER-AIDEDDETECTION BILATERAL BREAST ULTRASOUND. DATE OF EXAM: 02/16/11 History: Bilateral breast lumpiness. Technique: Bilateral full field digital diagnostic mammograms wereobtained. CAD was utilized. No prior studies are available for comparisonat this institution. BREAST COMPOSITION: Extremely dense, which lowers the sensitivity ofmammography. Findings: No definite dominant masses are identified. Scatteredcalcifications are identified bilaterally. CAD was utilized. Bilateral breast ultrasound was performed. This demonstrates numerousbilateral cysts. The cyst at 10:00 position of right breast is the largestcyst in the right breast and measures 1.2 cm in size. A cyst in the leftbreast at 2:00 position measures a maximum of 2.1 cm in dimension. Patienthas requested bilateral breast ultrasound guided cyst aspiration. OVERALL ASSESSMENT: BIRADS category 2 - Benign findings IMPRESSION: Bilateral breast cysts are identified. Annual mammography is recommended us Clary Baeza MD MAMMO ORDERABLES Final Result from Last 3 Months or Most Recently Relevant to Health Maintenance Insurance [facility] [id number] [id number] Advance Directives For more information, please contact: [phone] * Full Code (Latest Code Status on File) Date Activated Date Inactivated Comments 12/14/2022 5:10 AM 12/15/2022 4:26 PM Care Teams Cake Decorator Relationship Specialty [place] [address] [place] [id number] PCP - General Internal Medicine 12/13/22
== END 2024-10-26 14:03 | disposition home or self-care (01) ==
PROVIDERS: PCP Internal Medicine; Visit Provider Nurse Practitioner
DX: K21.9 Gastro-esophageal reflux disease without esophagitis (principal); K44.9 Diaphragmatic hernia without obstruction or gangrene; K76.0 Fatty (change of) liver, not elsewhere classified
CPT/HCPCS: 74177; Q9967